=== PATIENT | female | born 1990 | race Caucasian/White ===

== ENCOUNTER → 2016-06-13 | Outpatient (CLI) | payer BC, OTHER ==
[~2016-06-13] MED LIST: LAMO100T16 PO; LAMO1TAB PO; LEVE1TAB57 PO; LEVE500T13 PO; MTR600X PO; PRENTAB26 PO
--- NOTE | 2016-06-13 12:54 | DIAGNOSTIC IMAGING REPORT ---
ADDENDUM Addendum: Inferior displacement of the right humeral head raises the possibility of subluxation or dislocation although there is no evidence for anterior or posterior dislocation on this exam. Electronically signed by: Sylvester Roque M.D. 06/13/2016 1:01 PM ORIGINAL REPORT RIGHT SHOULDER MIN 2 VIEWS CLINICAL HISTORY: Right shoulder pain. COMPARISON: Right shoulder radiograph September 19, 2014. FINDINGS: There are 2 screws within the glenoid. The hardware is intact. There is no acute fracture. There is slight elevation of the distal right clavicle. This is unchanged since prior exam. There is apparent inferior displacement of the right humeral head. This may be positional. There is no evidence for an anterior or posterior shoulder dislocation on the scapular Y or axillary views. IMPRESSION: 1. No acute fracture. 2. Stable postsurgical findings involving the glenoid. 3. Apparent inferior displacement of the right humeral head and this may be positional. No evidence for anterior or posterior shoulder dislocation. 4. Slight elevation of the distal right clavicle with respect to the acromion which is unchanged. Electronically signed by: Sylvester Roque M.D. 06/13/2016 12:52 PM
== END | disposition home or self-care (01) ==
LOC: C.RDSM 13:40
PROVIDERS: ATTEND Physical Medicine & Rehabilitation Sports Medicine
DX: R52 Pain, unspecified (principal)

== ENCOUNTER → 2016-09-05 | Outpatient (CLI) | payer OTHER ==
--- NOTE | 2016-09-05 11:53 | DIAGNOSTIC IMAGING REPORT ---
RIGHT SHOULDER MIN 2 VIEWS CLINICAL HISTORY: Right shoulder pain. There are pathology. COMPARISON: 06/13/2016 DISCUSSION: No acute fractures are visualized. Postsurgical changes are visualized with 2 glenoid screws. There is mild inferior displacement humeral head, raising the possibility of capsular laxity. IMPRESSION: 1. No acute fractures 2. Postsurgical changes involving the glenoid 3. Persistent inferior displacement right humeral head. This could relate to capsular laxity/instability. Electronically signed by: Sree Gaston M.D. 09/05/2016 11:52 AM Dictated Date/Time: 09/05/2016 11:50 AM
== END | disposition home or self-care (01) ==
LOC: C.RDSM 11:35
PROVIDERS: ATTEND Physician Assistant
DX: M25.511 Pain in right shoulder (principal)

== ENCOUNTER → 2016-10-28 | Outpatient (CLI) | payer OTHER ==
[2016-10-28 19:45] LABS: PREG INTERNAL NEGATIVE QC NEG CLEAR BACKGROUND; PREG INTERNAL POSITIVE QC POS CONTROL LINE
== END | disposition home or self-care (01) ==
LOC: C.LAB 18:57
PROVIDERS: ATTEND Family Medicine
DX: Z00.00 Encounter for general adult medical examination without abnormal findings (principal); O99.350 Diseases of the nervous system complicating pregnancy, unspecified trimester; G40.109 Localization-related (focal) (partial) symptomatic epilepsy and epileptic syndromes with simple partial seizures, not intractable, without status epilepticus; Z3A.00 Weeks of gestation of pregnancy not specified

== ENCOUNTER → 2016-11-07 | Outpatient (CLI) | payer OTHER | END | disposition home or self-care (01) | LOC: C.LAB 11:33 | PROVIDERS: ATTEND Obstetrics & Gynecology | DX: Z34.81 Encounter for supervision of other normal pregnancy, first trimester (principal) ==

== ENCOUNTER → 2016-11-11 | Outpatient (CLI) | payer OTHER | END | disposition home or self-care (01) | LOC: C.LAB 10:34 | PROVIDERS: ATTEND Obstetrics & Gynecology | DX: Z34.81 Encounter for supervision of other normal pregnancy, first trimester (principal) ==

== ENCOUNTER → 2016-11-28 | Outpatient (CLI) | payer OTHER | END | disposition home or self-care (01) | LOC: C.LAB 17:08 | PROVIDERS: ATTEND Psychiatry & Neurology Neurology | DX: O99.350 Diseases of the nervous system complicating pregnancy, unspecified trimester (principal); G40.109 Localization-related (focal) (partial) symptomatic epilepsy and epileptic syndromes with simple partial seizures, not intractable, without status epilepticus ==

== ENCOUNTER → 2016-12-25 | Outpatient (CLI) | payer OTHER ==
[2016-12-25 14:09] LABS: URINE APPEARANCE CLEAR (CLEAR); URINE BILIRUBIN NEG (NEG); URINE COLOR YELLOW; URINE NITRITE NEG (NEG); URINE PH 6.5 (4.5-7.5); URINE SPECIFIC GRAVITY 1.025 (1.000-1.030); UROBILINOGEN NEG (NEG)
[2016-12-25 14:24] LABS: MANUAL MICROSCOPIC REQUIRED? NO; REVIEW REQ? NO
[2016-12-28 02:01] LABS: CHLAMYDIA TRACH RNA*** NOT DETECTED (NOT DETECTED); GC (NEIS GONORRHOEAE)RNA** NOT DETECTED (NOT DETECTED)
== END | disposition home or self-care (01) ==
LOC: C.LABSPEC 13:17
PROVIDERS: ATTEND Obstetrics & Gynecology
DX: O34.219 Maternal care for unspecified type scar from previous cesarean delivery (principal); Z3A.00 Weeks of gestation of pregnancy not specified

== ENCOUNTER → 2016-12-25 | Outpatient (CLI) | payer OTHER ==
[2016-12-25 18:53] LABS: BASO % 0.3 %; BASO ABS # 0.03 K/uL (0-0.2); COMPLETE YES; EOS % 1.2 %; IG% 0.2 %; LYMPH % 34.5 %; LYMPH ABS # 3.24 K/uL (1.2-3.4); MEAN CELL VOLUME 88.2 fL (80-100); MEAN CORPUSCULAR HEMOGLOBIN 30.9 pg (25-34); MEAN PLATELET VOLUME 10.1 fL (7.4-10.4); MONO % 4.6 %; NEUT % 59.2 %; PLATELET COUNT 282 K/uL (130-400); RED BLOOD COUNT 4.31 M/uL (4.2-5.4); WHITE BLOOD COUNT 9.39 K/uL (4.8-10.8)
== END | disposition home or self-care (01) ==
LOC: C.LAB 18:32
PROVIDERS: ATTEND Psychiatry & Neurology Neurology
DX: G40.109 Localization-related (focal) (partial) symptomatic epilepsy and epileptic syndromes with simple partial seizures, not intractable, without status epilepticus (principal); O99.350 Diseases of the nervous system complicating pregnancy, unspecified trimester; O34.219 Maternal care for unspecified type scar from previous cesarean delivery; Z3A.00 Weeks of gestation of pregnancy not specified

== ENCOUNTER → 2016-12-25 | Outpatient (CLI) | payer OTHER | END | disposition home or self-care (01) | LOC: C.PAPS 13:35 | PROVIDERS: ATTEND Obstetrics & Gynecology | DX: Z12.4 Encounter for screening for malignant neoplasm of cervix (principal); G40.109 Localization-related (focal) (partial) symptomatic epilepsy and epileptic syndromes with simple partial seizures, not intractable, without status epilepticus; O99.350 Diseases of the nervous system complicating pregnancy, unspecified trimester; O34.219 Maternal care for unspecified type scar from previous cesarean delivery; Z3A.00 Weeks of gestation of pregnancy not specified ==

== ENCOUNTER → 2017-01-21 | Outpatient (CLI) | payer OTHER | END | disposition home or self-care (01) | LOC: C.LAB 18:47 | PROVIDERS: ATTEND Psychiatry & Neurology Neurology | DX: G40.109 Localization-related (focal) (partial) symptomatic epilepsy and epileptic syndromes with simple partial seizures, not intractable, without status epilepticus (principal); O99.350 Diseases of the nervous system complicating pregnancy, unspecified trimester; Z3A.00 Weeks of gestation of pregnancy not specified ==

== ENCOUNTER → 2017-01-22 | Outpatient (CLI) | payer OTHER ==
[2017-01-22 10:45] LABS: GTGD 50 Grams
== END | disposition home or self-care (01) ==
LOC: C.LAB1850 09:27
PROVIDERS: ATTEND Obstetrics & Gynecology
DX: O09.92 Supervision of high risk pregnancy, unspecified, second trimester (principal)

== ENCOUNTER 2017-02-11 12:24 | Emergency (ER) | payer OTHER ==
[~2017-02-11] VITALS: Ht 165.1 cm; Wt 73.2 kg
[~2017-02-11 12:24] MED LIST changes: -LAMO1TAB PO; -LEVE500T13 PO
[2017-02-11 12:25] VITALS: TEMP 36.8; Ht 165.1 cm; Wt 73.2 kg
[2017-02-11] MEDS ORDERED: SODIUM CHLORIDE 0.9% 1000ML 1,000 ML IV STA ×2 (12:44→14:59)
[2017-02-11 13:44] LABS: BASO % 0.2 %; BASO ABS # 0.01 K/uL (0-0.2); COMPLETE YES; EOS % 0.4 %; HEMATOCRIT 38.3 % (37-47); IG% 0.4 %; LYMPH % 26.1 %; LYMPH ABS # 1.46 K/uL (1.2-3.4); MEAN CELL VOLUME 87.4 fL (80-100); MEAN CORPUSCULAR HEMOGLOBIN 29.7 pg (25-34); MEAN CORPUSCULAR HGB CONC 33.9 g/dl (32-36); MEAN PLATELET VOLUME 9.5 fL (7.4-10.4); MONO % 5.9 %; PLATELET COUNT 249 K/uL (130-400); RED BLOOD COUNT 4.38 M/uL (4.2-5.4)
[2017-02-11] MEDS ORDERED: PRENTAB26 PO (13:45)
[2017-02-11] MEDS ORDERED: LEVE500T13 PO (13:45)
[2017-02-11] MEDS ORDERED: LAMO1TAB PO (13:45)
[2017-02-11 13:52] LABS: INR 0.9 (0.9-1.1); PARTIAL THROMBOPLASTIN RATIO 1.1; PROTHROMBIN TIME (PATIENT) 10.1 SECONDS (9.0-12.0)
[2017-02-11 14:02] LABS: ALT/SGPT 18 U/L (12-78); AMYLASE 35 U/L (25-115); BLOOD UREA NITROGEN 5 mg/dl (7-18); BUN/CREATININE RATIO 8.2 (10-20); CALCIUM 8.6 mg/dl (8.5-10.1); CARBON DIOXIDE 21 mmol/L (21-32); CHLORIDE 107 mmol/L (98-107); CREATININE 0.66 mg/dl (0.60-1.20); GLUCOSE 71 mg/dl (70-99); POTASSIUM 3.2 mmol/L (3.5-5.1); SODIUM 139 mmol/L (136-145)
[2017-02-11 14:07] LABS: ALKALINE PHOSPHATASE 55 U/L (45-117); AST/SGOT 21 U/L (15-37)
--- NOTE | 2017-02-11 15:23 | EMERGENCY ROOM VISIT NOTE ---
History Report prepared by Mary: Nakul Oneill Under the Supervision of: Dr. Ronnie Cage D.O. First contact with patient: 12:28 Stated Complaint: SYNCOPE History of Present Illness The patient is a 26 year old female who presents to the Emergency Room for evaluation of a syncopal episode occurring shortly prior to arrival. The patient is currently with her second . She states that she passed out while alone in the bathroom at her PCP's office. She was seen by her PCP for flu-like symptoms including nausea, vomiting, diarrhea, headaches, and abdominal pain. The patient states that this was her second visit to her PCP for her symptoms, as they persisted for four days. She has a history of epilepsy for which she is on Lamictal. She believes she lost bladder incontinence during the episode, but denies biting her tongue. Per family, the patient was in the bathroom for around 30 minutes before she was found. She states that the patient appeared slightly purple when she was found. She states that the patient was initially unresponsive, but slowly became more alert. The patient has not had a seizure for about a year, but states that she was having seizures regularly with her previous . She denies any black or bloody stool. She notes that she had a fever four days ago. Source of History: patient Onset: Shortly prior to arrival Quality: other (syncope) Timing: other (episode) Associated Symptoms: + LOC, + nausea, + vomiting, + abdominal pain, + diarrhea, No melena, No hematochezia Note: Additional symptom: Loss of bladder continence. Review of Systems See HPI for pertinent positives & negatives. A total of 10 systems reviewed and were otherwise negative. Past Medical & Surgical Medical Problems: (1) 37 weeks gestation of (2) 39 weeks gestation of (3) Breech presentation (4) C. difficile diarrhea (5) Dehydration, moderate (6) Epilepsy (7) Epilepsy affecting in third trimester (8) Maternal seizure disorder during in third trimester (9) Nausea and vomiting during (10) Seizure (11) Seizure disorder during in third trimester Surgical Problems: (1) Hx of cholecystectomy (2) S/P myringotomy with insertion of tube (3) Status post shoulder surgery Family History Cancer Diabetes mellitus Heart disease Hypertension Social History Smoking Status: Never Smoker Alcohol Use: occasionally Drug Use: none Marital Status: Housing Status: lives with significant other Occupation Status: employed Current/Historical Medications Scheduled Lamotrigine (Lamictal Xr), 300 MG PO BID Levetiracetam (Keppra), 500 MG PO BID Multivit/Min/Iron/Fol Ac/Pren ( Vitamin), 1 TAB PO DAILY Allergies Coded Allergies: Penicillins (Verified Allergy, Intermediate, HIVES, 04/03/16) PT HAD HIVES WITH AMOXICILLIN AND WAS TOLD TO STAY AWAY FROM [facility] Amoxicillin (Verified Allergy, Mild, hives, 04/03/16) Tramadol (Verified Allergy, Unknown, SHORTNESS OF BREATH, 04/03/16) Ondansetron (Verified Adverse Reaction, Unknown, Constipation, 04/03/16) Good anti-emetic control but does develop constipation with higher dosing Prochlorperazine (Verified Adverse Reaction, Unknown, DYSTONIC RX, ) Promethazine (Verified Adverse Reaction, Unknown, dystonic reaction , ) Physical Exam Vital Signs Date Time Temp Pulse Resp B/P (MAP) Pulse Ox O2 Delivery O2 Flow Rate FiO2 02/11/17 15:32 74 14 103/58 97 Room Air 02/11/17 14:48 78 19 109/58 99 Room Air 02/11/17 14:48 78 19 109/58 99 Room Air 88 112/55 105 112/60 02/11/17 12:55 77 12 113/66 95 Room Air 02/11/17 12:39 87 02/11/17 12:25 36.8 75 20 109/66 96 Room Air Physical Exam GENERAL: Patient is awake, alert, and in no acute distress. Patient is resting comfortably and showing no signs of anxiety EYES: The conjunctivae are clear. The pupils are round and reactive. EARS, NOSE, MOUTH AND THROAT: The nose is without any evidence of any deformity. Mucous membranes are moist tongue is midline NECK: The neck is nontender and supple. RESPIRATORY: Normal respiratory effort is noted there is no evidence of wheezing rhonchi or rales CARDIOVASCULAR: Regular rate and rhythm noted there no murmurs rubs or gallops normal S1 normal S2 GASTROINTESTINAL: The abdomen is soft. Bowel sounds are present in all quadrants. Abdomen is nontender MUSCULOSKELETAL/EXTREMITIES: There is no evidence of gross deformity full range of motion is noted in the hips and shoulders SKIN: There is no obvious evidence of any rash. There are no petechiae, pallor or cyanosis noted. NEUROLOGIC: Patient is awake alert and oriented x3 strength is symmetric patellar reflexes are 2+ bilaterally Medical Decision & Procedures Laboratory Results 02/11/17 13:25 Red Blood Count 4.38, Mean Corpuscular Volume 87.4, Mean Corpuscular Hemoglobin 29.7, Mean Corpuscular Hemoglobin Concent 33.9, Mean Platelet Volume 9.5, Neutrophils (%) (Auto) 67.0, Lymphocytes (%) (Auto) 26.1, Monocytes (%) (Auto) 5.9, Eosinophils (%) (Auto) 0.4, Basophils (%) (Auto) 0.2, Neutrophils # (Auto) 3.76, Lymphocytes # (Auto) 1.46, Monocytes # (Auto) 0.33, Eosinophils # (Auto) 0.02, Basophils # (Auto) 0.01 02/11/17 13:25 Test 02/11/17 13:25 02/11/17 14:50 White Blood Count 5.60 K/uL (4.8-10.8) Red Blood Count 4.38 M/uL (4.2-5.4) Hemoglobin 13.0 g/dL (12.0-16.0) Hematocrit 38.3 % (37-47) Mean Corpuscular Volume 87.4 fL (80-100) Mean Corpuscular Hemoglobin 29.7 pg (25-34) Mean Corpuscular Hemoglobin Concent 33.9 g/dl (32-36) Platelet Count 249 K/uL (130-400) Mean Platelet Volume 9.5 fL (7.4-10.4) Neutrophils (%) (Auto) 67.0 % Lymphocytes (%) (Auto) 26.1 % Monocytes (%) (Auto) 5.9 % Eosinophils (%) (Auto) 0.4 % Basophils (%) (Auto) 0.2 % Neutrophils # (Auto) 3.76 K/uL (1.4-6.5) Lymphocytes # (Auto) 1.46 K/uL (1.2-3.4) Monocytes # (Auto) 0.33 K/uL (0.11-0.59) Eosinophils # (Auto) 0.02 K/uL (0-0.5) Basophils # (Auto) 0.01 K/uL (0-0.2) RDW Standard Deviation 43.3 fL (36.4-46.3) RDW Coefficient of Variation 13.4 % (11.5-14.5) Immature Granulocyte % (Auto) 0.4 % Immature Granulocyte # (Auto) 0.02 K/uL (0.00-0.02) Prothrombin Time 10.1 SECONDS (9.0-12.0) Prothromb Time International Ratio 0.9 (0.9-1.1) Activated Partial Thromboplast Time 27.3 SECONDS (21.0-31.0) Partial Thromboplastin Ratio 1.1 Anion Gap 11.0 mmol/L (3-11) Est Creatinine Clear Calc Drug Dose 130.6 ml/min Estimated GFR () 142.3 Estimated GFR (Non- 122.8 BUN/Creatinine Ratio 8.2 (10-20) Calcium Level 8.6 mg/dl (8.5-10.1) Total Bilirubin 0.3 mg/dl (0.2-1) Direct Bilirubin < 0.1 mg/dl (0-0.2) Aspartate Amino Transf (AST/SGOT) 21 U/L (15-37) Alanine Aminotransferase (ALT/SGPT) 18 U/L (12-78) Alkaline Phosphatase 55 U/L (45-117) Troponin I < 0.015 ng/ml (0-0.045) Total Protein 6.8 gm/dl (6.4-8.2) Albumin 3.1 gm/dl (3.4-5.0) Amylase Level 35 U/L (25-115) Lipase 126 U/L (73-393) Urine Color DK YELLOW Urine Appearance CLEAR (CLEAR) Urine pH 5.5 (4.5-7.5) Urine Specific [place] 1.029 (1.000-1.030) Urine Protein TRACE (NEG) Urine Glucose (UA) NEG (NEG) Urine Ketones 4+ (NEG) Urine Occult Blood NEG (NEG) Urine Nitrite NEG (NEG) Urine Bilirubin NEG (NEG) Urine Urobilinogen NEG (NEG) Urine Leukocyte Esterase SMALL (NEG) Laboratory results per my review. Medications Administered Medications (Trade) Dose Ordered Sig/Angela Route Start Time Stop Time Status Last Admin Dose Admin Sodium Chloride 1,000 ml @ 999 mls/hr Q1H1M STAT IV 02/11/17 12:44 9/5/17 13:48 DC 02/11/17 13:41 999 MLS/HR Sodium Chloride 1,000 ml @ 999 mls/hr Q1H1M STAT IV 02/11/17 14:59 02/11/17 15:59 02/11/17 15:33 999 MLS/HR ECG Indication: syncope Rate (beats per minute): 69 Rhythm: normal sinus Findings: no ectopy, other (No acute ST segment abnormalities) Comparison ECG Date: September 26, 2015 Change: no significant change ED Course 1234: The patient was evaluated in room C2B. A complete history and physical examination were performed. 1244: Ordered NSS 1,000 ml @ 999 mls/hr IV. 1459: Ordered NSS 1,000 ml @ 999 mls/hr IV. 1555: Upon reevaluation, the patient is resting comfortably. I discussed the results and treatment plan with her. She verbalized agreement of the treatment plan. The patient was discharged home. Medical Decision Differential diagnosis: Etiologies such as infection, hypoglycemia, electrolyte abnormalities, cardiac sources, intracerebral event, trauma, toxicologic, neurologic, as well as others were entertained. Nursing notes reviewed. Additional history is obtained from the patient's significant other. The patient is a 26-year-old female who presented to emergency department after having a seizure and her primary care physician's office. Currently the patient is 18 weeks and has an underlying seizure disorder. She's been suffering with nausea vomiting and diarrhea for the last few days. She states that she has seen her seizure medications passing in her diarrhea and does not feel that she is absorbing them. Levels were sent for her antiseizure medications but these may take some time to return. I discussed the patient's laboratory results with her. At this time she did not wish to have any radiographic studies. She was found have a small area on her right cheek the longer she was here that could be consistent with a small bruise to the face. She still did not wish to have any radiographic studies and at this time I agree with that approach given the patient's neurologic status in the emergency department. I discussed her case with the covering neurologist. Given the patient's current condition she may require medication change but he felt that this could be done in the office at follow-up and I agree. I discussed follow- up with the patient. She was encouraged to drink plenty clear liquids and continue all medications as prescribed otherwise she was encouraged to return to emergency department immediately if symptoms change worsen or the need arises. Head Trauma GCS Score: 15 Consults Time Called: 1434 Consulting Physician: Dr. Thompson -Neurology Returned Call: [phone] I discussed the patient's case with Dr. Thompson. He will see the patient in the office next week. Impression Primary Impression: Seizure Additional Impressions: Dehydration Diarrhea Scribe Attestation The scribe's documentation has been prepared under my direction and personally reviewed by me in its entirety. I confirm that the note above accurately reflects all work, treatment, procedures, and medical decision making performed by me. Departure Information Dispostion Home / Self-Care Referrals No Doctor, Assigned (PCP) Forms HOME CARE DOCUMENTATION FORM, IMPORTANT VISIT INFORMATION Patient Instructions ED Dehydration, ED Seizure Recurrent, My [facility] Additional Instructions Drink plenty clear liquids. Continue all medications as prescribed. Rest and avoid any strenuous activity. Return to the emergency department immediately if symptoms change worsen or the need arises. Follow-up with your urologist this week. Problem Qualifiers
[2017-02-11 15:33] LABS: URINE APPEARANCE CLEAR (CLEAR); URINE BILIRUBIN NEG (NEG); URINE COLOR DK YELLOW; URINE EPITHELIAL CELL AUTO >30 /lpf (0-5); URINE NITRITE NEG (NEG); URINE PH 5.5 (4.5-7.5); URINE SPECIFIC GRAVITY 1.029 (1.000-1.030); UROBILINOGEN NEG (NEG)
[2017-02-11 15:44] LABS: MANUAL MICROSCOPIC REQUIRED? NO; REVIEW REQ? YES
[2017-02-11 16:34] VITALS: BP 107/57; PULSE 78; O2SAT 99
== END 2017-02-11 16:35 | disposition home or self-care (01) ==
LOC: EDBD 12:24 → C.EDC 12:25
DX: O99.352 Diseases of the nervous system complicating pregnancy, second trimester (principal); G40.909 Epilepsy, unspecified, not intractable, without status epilepticus; O99.89 Other specified diseases and conditions complicating pregnancy, childbirth and the puerperium; R19.7 Diarrhea, unspecified; E86.0 Dehydration; Z3A.18 18 weeks gestation of pregnancy; Z90.49 Acquired absence of other specified parts of digestive tract; Z80.9 Family history of malignant neoplasm, unspecified; Z83.3 Family history of diabetes mellitus; Z82.49 Family history of ischemic heart disease and other diseases of the circulatory system; Z79.899 Other long term (current) drug therapy

== ENCOUNTER → 2017-04-23 | Outpatient (CLI) | payer OTHER ==
[~2017-04-23] MED LIST changes: -LAMO100T16 PO; +LAMO1TAB PO; -LEVE1TAB57 PO; +LEVE500T13 PO; -MTR600X PO
[2017-04-23 12:12] LABS: URINE APPEARANCE CLEAR (CLEAR); URINE BILIRUBIN NEG (NEG); URINE COLOR YELLOW; URINE EPITHELIAL CELL AUTO >30 /lpf (0-5); URINE NITRITE NEG (NEG); URINE SPECIFIC GRAVITY 1.025 (1.000-1.030); UROBILINOGEN NEG (NEG)
[2017-04-23 12:38] LABS: MANUAL MICROSCOPIC REQUIRED? NO; REVIEW REQ? NO
== END | disposition home or self-care (01) ==
LOC: C.LABSPEC 11:16
PROVIDERS: ATTEND Obstetrics & Gynecology
DX: O09.93 Supervision of high risk pregnancy, unspecified, third trimester (principal)

== ENCOUNTER 2017-05-22 18:58 | Emergency (ER) | payer OTHER ==
[~2017-05-22] VITALS: Ht 165.1 cm; Wt 81.3 kg
[2017-05-22 19:06] VITALS: TEMP 36.7; Ht 165.1 cm; Wt 81.3 kg
[2017-05-22] MEDS ORDERED: LAMO1TAB75 PO (19:18)
--- NOTE | 2017-05-22 20:16 | DIAGNOSTIC IMAGING REPORT ---
R SHOULDER MIN 2 VIEWS ROUTINE CLINICAL HISTORY: Right shoulder pain. COMPARISON STUDY: Right shoulder 09/05/2016. FINDINGS: No acute fractures within the right shoulder. There are 2 screws along the inferior glenoid which is unchanged in position. The right clavicle is intact. There is persistent inferior displacement of the right humeral head in relation to the glenoid. This remains unchanged. IMPRESSION: 1. No acute fractures within the right shoulder. 2. Postoperative changes at the glenoid, unchanged. 3. Persistent inferior displacement of the right humeral head in relation to the glenoid. An acute dislocation/subluxation could have this appearance. However, this could also represent long-standing capsular laxity/instability given the lack of significant change. Electronically signed by: Issa Kaminski M.D. 05/22/2017 8:15 PM Dictated Date/Time: 05/22/2017 8:12 PM
--- NOTE | 2017-05-22 20:20 | DIAGNOSTIC IMAGING REPORT ---
R SHOULDER 1 VIEW CLINICAL HISTORY: Right shoulder pain. COMPARISON STUDY: Right shoulder 05/22/2017. Right shoulder 09/19/2014. FINDINGS: Single Y view of the right shoulder. There is no anterior or posterior displacement identified. Of note, compared to the 2014 examination the right shoulder demonstrates increased inferior displacement. Therefore, the initial study is more concerning for inferior dislocation IMPRESSION: 1. No anterior or posterior displacement. 2. Inferior displacement of the humeral head in relation to the glenoid on the initial study is concerning for inferior dislocation rather than chronic laxity. Electronically signed by: Issa Kaminski M.D. 05/22/2017 8:19 PM Dictated Date/Time: 05/22/2017 8:17 PM
--- NOTE | 2017-05-22 21:12 | EMERGENCY ROOM VISIT NOTE ---
ED Visit Note First contact with patient: 19:12 The patient was seen and examined with Wood Lozano PA-C. I agree with the history, physical and findings. Please see the note for disposition and details. The patient was examined and I can move her through good range of motion with the shoulder. She is uncomfortable. It feels as though the humeral head can be elevated with an upward force applied to the elbow and anatomic alignment is achieved. If the patient holds her arm with upward force the joint lines normally. As she relaxes and let go of her lower arm the humeral head appears to slip inferiorly. She seems to more or less sublux rather than completely dislocate. It elevates quite easily. A sling was applied. The patient declined analgesia. Consultation was made with orthopedics will see her tomorrow. She is neurovascularly intact.
[2017-05-22 21:33] VITALS: BP 127/72; PULSE 88; O2SAT 99
--- NOTE | 2017-05-22 21:39 | EMERGENCY ROOM VISIT NOTE ---
ED Visit Note First contact with patient: 19:12 Chief Complaint: Right shoulder pain. History of Present Illness: Ms. Kellogg is a 26-year-old white female who ambulates into the ED complaining of right shoulder pain. 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 In June 2014 Dr. Vogt, [facility], performed a [place]-Latarjet open reconstruction procedure. After surgery she does report she developed a nerve injury in the right shoulder. Patient reports approximately 2.5 hours ago she was at home and tripped walking down the stairs when her cat ran in front of her. She reports she grabbed the wall so she would not fall. When she grabbed the wall she sustained what she describes as a hyper pars idle extension injury. When this occurred she reports she felt a popping sensation in the right shoulder and since that time she has been having severe right shoulder pain. She places her discomfort globally throughout the shoulder with slight prominence over the anterior portion of the shoulder. She describes her pain as a combination of cramping and burning. She rates her discomfort 8/10. Her pain is nonradiating. Her pain worsens with palpation of the humerus and any attempts to her glenohumeral joint. She has not identified any alleviating factors related to the pain. She has not taken any medication for pain prior to arrival at the hospital. Associated with her pain she reports she is having paresthesias over the dorsal aspect of the thumb. She reports during the fall she did not strike her abdomen; she is currently 32 weeks and she is felt the baby moving. Additionally she reports she is not having any neck pain, chest pain, shortness of breath, nausea, vomiting, right upper extremity weakness. Review of Systems: As noted above in history of present illness. At least body systems were reviewed and found to be negative as noted above. Past Medical History: As previously noted, seizure disorder, status post cholecystectomy. Current Medications: Lamictal, Keppra, vitamins and Lamotrigine Allergies to Medications: Penicillin, promethazine, prochlorperazine, ondansetron, tramadol. Social History: He is currently employed; she lives with her family and feels safe in her home environment; she denies tobacco and alcohol use. Physical Examination: Vital Signs: Date Time Temp Pulse Resp B/P (MAP) Pulse Ox O2 Delivery O2 Flow Rate FiO2 05/22/17 19:06 36.7 92 18 138/87 97 Room Air GENERAL: 26-year-old female in mild to moderate distress due to pain, nontoxic- appearing, afebrile and hemodynamically stable. NEUROLOGICAL: Awake, alert and oriented to person, place and time. Answering questions appropriately and following commands. SKIN: Warm, dry and pink. No soft tissue trauma noted. RIGHT UPPER EXTREMITY: I do not appreciate any gross bony deformity but patient from her surgery and nerve injury does have a seeking appearance anteriorly. She had moderate tenderness over the anterior humeral head without bony deformity or crepitus. Decreased range of motion in all movements due to pain. Pain with passive and active movements of the shoulder. No paresthesias over the axillary nerve distribution. Paresthesias noted over the dorsal thumb; patient does reports she's had these intermittently since her surgeries. No tenderness throughout the distal humerus, elbow, forearm or wrist. Throughout the hand the skin was warm and pink and capillary refill is brisk. With the shoulder stabilize she has 4/5 muscle strength in flexion and extension of the elbow, pronation and supination of forearm, flexion, extension and radial and ulnar deviation of the wrist. ED Course: Patient is assessed as noted above. Patient's medication list was reviewed. Patient was offered medication multiple times and refused. Right Shoulder X-Rays: Were read by myself and the radiologist showing no acute fractures of the right shoulder. Postoperative changes at the glenoid is unchanged. Persistent inferior displacement of the right humeral head in relationship to the glenoid was again seen and was questioned if this was a dislocation/subluxation or long-standing capsular he laxity/instability. Right Shoulder Y-View X-Rays: Were read by myself and the radiologist showing no anterior posterior displacement. Inferior displacement of the humeral head relationship to the glenoid is concerning for possible inferior dislocation. Patient's case was reviewed with ; he and apparently assessed the patient and we agreed on diagnostic approach, treatment, disposition and plan per Patient's case was consulted with Dr. Tran, [facility]; he reviewed the patient's x-rays from home and suggested that the patient be placed in a sling with a abductor pillow and office follow-up. Patient was placed in a sling with an abductor pillow. Patient was educated about today's findings and instructed on her treatment plan ; she verbalized understanding and agreement with this plan. Clinical Impression: Acute right shoulder pain. Disposition: Patient discharged home in stable condition accompanied by her ; prior to departure she was reassessed and subjectively reported she was feeling better. Plan: Comfort measures were discussed with the patient including rest, acetaminophen, and sling use. Patient was encouraged to contact [facility] tomorrow for follow-up care and treatment. Patient is encouraged return ED for worsening/uncontrolled pain, worsening thumb paresthesias or any new/concerning symptoms.
== END 2017-05-22 21:35 | disposition home or self-care (01) ==
LOC: C.EDB 18:59 → C.EDD 21:35
DX: O26.893 Other specified pregnancy related conditions, third trimester (principal); M25.511 Pain in right shoulder; W19.XXXA Unspecified fall, initial encounter; Y93.01 Activity, walking, marching and hiking; Y99.8 Other external cause status; Z3A.32 32 weeks gestation of pregnancy; O99.353 Diseases of the nervous system complicating pregnancy, third trimester; G40.909 Epilepsy, unspecified, not intractable, without status epilepticus; Z90.49 Acquired absence of other specified parts of digestive tract; Z79.899 Other long term (current) drug therapy

== ENCOUNTER 2017-06-04 11:05 | Emergency (ER) | payer OTHER ==
[~2017-06-04 11:05] MED LIST changes: +LAMO1TAB75 PO
[2017-06-04 11:15] VITALS: O2SAT 100
[2017-06-04 11:19] VITALS: TEMP 37
[2017-06-04 11:25] LABS: BASO % 0.2 %; BASO ABS # 0.02 K/uL (0-0.2); COMPLETE YES; EOS % 0.5 %; HEMATOCRIT 34.9 % (37-47); IG% 0.4 %; LYMPH % 16.9 %; LYMPH ABS # 1.86 K/uL (1.2-3.4); MEAN CELL VOLUME 82.3 fL (80-100); MEAN CORPUSCULAR HEMOGLOBIN 27.6 pg (25-34); MEAN CORPUSCULAR HGB CONC 33.5 g/dl (32-36); MEAN PLATELET VOLUME 9.4 fL (7.4-10.4); MONO % 5.5 %; NEUT % 76.5 %; PLATELET COUNT 303 K/uL (130-400); RED BLOOD COUNT 4.24 M/uL (4.2-5.4); WHITE BLOOD COUNT 11.01 K/uL (4.8-10.8)
--- NOTE | 2017-06-04 11:25 | EMERGENCY ROOM VISIT NOTE ---
History Report prepared by Mary: Ida Christianson Under the Supervision of: Dr. Abdias Allen M.D. First contact with patient: 11:06 Stated Complaint: SEIZURE History of Present Illness The patient is a 26 year old female who presents to the Emergency Room with complaints of a seizure occurring just prior to arrival. Per EMS, the patient has a known seizure disorder. Per EMS, the patient fell down about 10 stairs and landed on her stomach. The patient is 8 months . This is the patient's second and she had no complications with her first . She reports neck pain, left leg pain, abdominal pressure. Presently , she denies having any contractions. The patient states she felt fine before her seizure. Per , the fall was unwitnessed. The patient's last seizure was in March was considered metabolic. The patient takes Keppra and Lamictal and she has been taking it as prescribed. Source of History: patient Onset: just prior to arrival Position: other (generalized) Quality: other (sezuire) Timing: other (episode) Associated Symptoms: + neck pain, + abdominal pain Review of Systems All systems have been listed, reviewed, and are negative other than those previously mentioned. Please see Additional Medical History Sheet. Past Medical & Surgical Medical Problems: (1) 37 weeks gestation of (2) 39 weeks gestation of (3) Breech presentation (4) C. difficile diarrhea (5) Dehydration, moderate (6) Epilepsy (7) Epilepsy affecting in third trimester (8) Maternal seizure disorder during in third trimester (9) Nausea and vomiting during (10) (11) Seizure (12) Seizure disorder during in third trimester Surgical Problems: (1) Hx of cholecystectomy (2) S/P myringotomy with insertion of tube (3) Status post shoulder surgery Family History Cancer Diabetes mellitus Heart disease Hypertension Social History Smoking Status: Never Smoker Alcohol Use: occasionally Drug Use: none Marital Status: Housing Status: lives with significant other Occupation Status: employed Current/Historical Medications Scheduled Lamotrigine (Lamictal Xr), 300 MG PO BID Lamotrigine (Lamotrigine Er), 50 MG PO BID Levetiracetam (Keppra), 500 MG PO BID Multivit/Min/Iron/Fol Ac/Pren ( Vitamin), 1 TAB PO DAILY Allergies Coded Allergies: Penicillins (Verified Allergy, Intermediate, HIVES, 06/04/17) PT HAD HIVES WITH AMOXICILLIN AND WAS TOLD TO STAY AWAY FROM N Amoxicillin (Verified Allergy, Mild, hives, 06/04/17) Tramadol (Verified Allergy, Unknown, SHORTNESS OF BREATH, 06/04/17) Ondansetron (Verified Adverse Reaction, Unknown, Constipation, 06/04/17) Good anti-emetic control but does develop constipation with higher dosing Prochlorperazine (Verified Adverse Reaction, Unknown, DYSTONIC RX, ) Promethazine (Verified Adverse Reaction, Unknown, dystonic reaction , ) Physical Exam Vital Signs Date Time Temp Pulse Resp B/P (MAP) Pulse Ox O2 Delivery O2 Flow Rate FiO2 06/04/17 12:22 97 18 119/66 97 Room Air 06/04/17 12:04 96 06/04/17 11:56 95 24 118/75 98 Room Air 06/04/17 11:19 37.0 105 26 118/74 100 Room Air 06/04/17 11:15 100 Room Air Physical Exam GENERAL: Initially the patient seemed confused and postictal. Patient awake, alert, oriented x 3. Patient does not appear toxic. Patient is adequately hydrated and well-nourished. SKIN: No erythema, pallor, cyanosis or rash HEENT: Normal head, pupils equal, reactive to light and accommodation. Oral cavity and posterior pharynx appear normal. Neck: in -C-collar. LUNGS: Clear to auscultation. No wheezes, no rales, no rhonchi. HEART: No murmurs. No gallops. No rubs ABDOMEN: Distended consistent with . Large bruise to RUQ. Pelvis nontender. EXTREMITIES: No signs of trauma. No pedal or pretibial edema. No calf or thigh tenderness. NEUROLOGIC: Cranial nerves II-XII within normal limits. No gross motor sensory function deficits. Medical Decision & Procedures ER Provider Diagnostic Interpretation: CT results are interpretations by the radiologist and per my review. ABD/PELVIS NO IV OR ORAL CONT FINDINGS: Post Office Markup Clerk topogram: Fetus noted. Lung bases: Minimal basilar opacities, likely atelectasis. Normal heart size. No pericardial or pleural effusion. Liver: Normal morphology. Normal density. Biliary: No gross biliary ductal dilatation allowing for noncontrast technique. Gallbladder surgically absent. Pancreas: Normal noncontrast appearance. Spleen: Normal noncontrast appearance. Adrenal glands: Normal noncontrast appearance. Kidneys and ureters: Normal noncontrast appearance of the renal parenchyma. Bilateral mild pelvocaliectasis with bilateral hydroureter. This likely represents hydronephrosis of . No nephrolithiasis. No perinephric fat stranding. Bladder: Incompletely evaluated secondary to underdistention. Pelvic organs: Normal third trimester gravid uterus and fetus. Allowing for noncontrast technique, the fetus is grossly normal appearing. Normal amniotic fluid volume. Posterior fundal placenta. Bowel: Normal appendix. No bowel obstruction. No gross evidence of bowel wall thickening or perienteric fat stranding. No infiltration of the mesentery. Peritoneal cavity: No free fluid or intraperitoneal gas. Lymph nodes: No gross lymphadenopathy allowing for noncontrast technique. Vasculature: Normal noncontrast appearance. Abdominal wall: Minimal infiltration of the subcutaneous tissue of the infraumbilical abdominal wall. Mild infiltration of the subcutaneous tissue of the right anterolateral abdominal wall in the right upper quadrant. A section scar may also be present. Minimal infiltration of the subcutaneous tissue in the right anterolateral thigh. Musculoskeletal: Normal. IMPRESSION: 1. Minimal superficial subcutaneous contusions in the right anterolateral abdominal wall, infraumbilical anterior abdominal wall, and right anterolateral thigh. No acute osseous injury. 2. Noncontrast technique limits evaluation for solid or hollow organ injury. Allowing for this, no free fluid or other evidence of intra-abdominal injury. 3. Normal noncontrast appearance of the gravid uterus and fetus. Electronically signed by: Aquiles Forrester M.D. CERVICAL SPINE W/O FINDINGS: Post Office Markup Clerk topogram: Unremarkable. Straightening of normal cervical lordosis likely positional. Bodies maintain normal height and alignment. Intervertebral disc spaces preserved. No acute fracture or subluxation. Paraspinal soft tissues normal. Few prominent bilateral cervical lymph nodes likely reactive. Lung apices clear. IMPRESSION: No acute osseous injury of the cervical spine. Electronically signed by: Aquiles Forrester M.D. HEAD WITHOUT CONTRAST (CT) FINDINGS: Post Office Markup Clerk topogram: Unremarkable. Ventricles and sulci normal in size. Brain parenchyma normal in appearance with preserved palacios-white differentiation. No mass effect or midline shift. No hemorrhage or acute territorial infarct. No extra-axial fluid collection. Paranasal sinuses and mastoid air cells clear. Calvarium intact. IMPRESSION: 1. No acute intracranial abnormality. Electronically signed by: Aquiles Forrester M.D. Laboratory Results 06/04/17 11:10 Red Blood Count 4.24, Mean Corpuscular Volume 82.3, Mean Corpuscular Hemoglobin 27.6, Mean Corpuscular Hemoglobin Concent 33.5, Mean Platelet Volume 9.4, Neutrophils (%) (Auto) 76.5, Lymphocytes (%) (Auto) 16.9, Monocytes (%) (Auto) 5.5, Eosinophils (%) (Auto) 0.5, Basophils (%) (Auto) 0.2, Neutrophils # (Auto) 8.42, Lymphocytes # (Auto) 1.86, Monocytes # (Auto) 0.61, Eosinophils # (Auto) 0.06, Basophils # (Auto) 0.02 06/04/17 12:13 06/04/17 11:10 Test 06/04/17 11:10 06/04/17 11:55 06/04/17 12:15 White Blood Count 11.01 K/uL (4.8-10.8) Red Blood Count 4.24 M/uL (4.2-5.4) Hemoglobin 11.7 g/dL (12.0-16.0) Hematocrit 34.9 % (37-47) Mean Corpuscular Volume 82.3 fL (80-100) Mean Corpuscular Hemoglobin 27.6 pg (25-34) Mean Corpuscular Hemoglobin Concent 33.5 g/dl (32-36) Platelet Count 303 K/uL (130-400) Mean Platelet Volume 9.4 fL (7.4-10.4) Neutrophils (%) (Auto) 76.5 % Lymphocytes (%) (Auto) 16.9 % Monocytes (%) (Auto) 5.5 % Eosinophils (%) (Auto) 0.5 % Basophils (%) (Auto) 0.2 % Neutrophils # (Auto) 8.42 K/uL (1.4-6.5) Lymphocytes # (Auto) 1.86 K/uL (1.2-3.4) Monocytes # (Auto) 0.61 K/uL (0.11-0.59) Eosinophils # (Auto) 0.06 K/uL (0-0.5) Basophils # (Auto) 0.02 K/uL (0-0.2) RDW Standard Deviation 40.2 fL (36.4-46.3) RDW Coefficient of Variation 13.3 % (11.5-14.5) Immature Granulocyte % (Auto) 0.4 % Immature Granulocyte # (Auto) 0.04 K/uL (0.00-0.02) Anion Gap 7.0 mmol/L (3-11) Estimated GFR () 142.3 Estimated GFR (Non- 122.8 BUN/Creatinine Ratio 9.5 (10-20) Calcium Level 8.4 mg/dl (8.5-10.1) Total Bilirubin 0.2 mg/dl (0.2-1) Aspartate Amino Transf (AST/SGOT) 18 U/L (15-37) Alanine Aminotransferase (ALT/SGPT) 18 U/L (12-78) Alkaline Phosphatase 73 U/L (45-117) Total Protein 7.1 gm/dl (6.4-8.2) Albumin 2.9 gm/dl (3.4-5.0) Globulin 4.2 gm/dl (2.5-4.0) Albumin/Globulin Ratio 0.7 (0.9-2) Urine Color YELLOW Urine Appearance CLEAR (CLEAR) Urine pH 6.5 (4.5-7.5) Urine Specific [place] 1.019 (1.000-1.030) Urine Protein NEG (NEG) Urine Glucose (UA) NEG (NEG) Urine Ketones NEG (NEG) Urine Occult Blood TRACE (NEG) Urine Nitrite NEG (NEG) Urine Bilirubin NEG (NEG) Urine Urobilinogen NEG (NEG) Urine Leukocyte Esterase NEG (NEG) Urine WBC (Auto) 1-5 /hpf (0-5) Urine RBC (Auto) 0-4 /hpf (0-4) Urine Hyaline Casts (Auto) 1-5 /lpf (0-5) Urine Epithelial Cells (Auto) 10-20 /lpf (0-5) Urine Bacteria (Auto) NEG (NEG) Laboratory results as stated above per my review. Medications Administered Medications (Trade) Dose Ordered Sig/Angela Route Start Time Stop Time Status Last Admin Dose Admin Potassium Chloride/Sodium Chloride 1,000 ml @ 75 mls/hr [id number] IV 06/04/17 13:45 07/04/17 13:44 06/04/17 14:04 75 MLS/HR Sodium Chloride 500 ml @ 500 mls/hr Q1H IV 06/04/17 13:42 06/04/17 14:41 06/04/17 12:58 500 MLS/HR Levetiracetam 1000 mg/Dextrose 110 ml @ 440 mls/hr ONE STAT IV 06/04/17 13:41 06/04/17 13:55 DC 06/04/17 13:58 440 MLS/HR Acetaminophen (Tylenol Tab) 500 mg Q6H PRN PO 06/04/17 13:45 07/04/17 13:44 06/04/17 13:50 500 MG ED Course 1106: Past medical records reviewed. The patient was evaluated in room B1. A complete history and physical examination was performed. 1123: Discussed the patient's case with Dr. Kasey LOPEZ OBGYAngela . He will come evaluate the patient and recommended doing CT of the abdomen. 1126: Family at bedside. 1235: Discussed the patient's case with Dr. Cristina Jordan. The patient will be evaluated for further management. 1302: The patient is still having pain in her RUQ. Medical Decision I considered multiple diagnoses including multiple trauma associated with , closed head injury, C-spine injury, intraabdominal bleed, rib fracture, seizure. The patient apparently fell down about 10 steps after a seizure. This was not witnessed and the patient has no memory of the event. She does have a prior history of seizures. The patient is currently 8 months . The patient does complain of some pain in the right upper quadrant. She initially was postictal my first evaluated her. Multiple labs and imaging were obtained. Please see above. The patient required CT of her head, neck and abdomen/pelvis due to the significant trauma especially over her right upper quadrant. A FAST exam was performed initially by Dr. Nickerson which was felt to be grossly negative. The patient's blood count was checked and rechecked. The patient did have a minimal drop in her hematocrit but no significant tachycardia or hypotension. The patient did have a small drop of blood after catheterization but the nurse felt this was due to the catheterization and not hematuria. Lamictal and Keppra levels are pending. I discussed care with the OB department and with medicine. The patient will be further evaluated in the hospital on the OB floor. The patient is known to be Rh+. Medication Reconcilliation Current Medication List: was personally reviewed by me Blood Pressure Screening Patient's blood pressure: Normal blood pressure Consults Time Called: 1120 Consulting Physician: Dr. Kasey DUMAS Returned Call: 1123 Discussed the patient's case with Dr. Kasey DUMAS . He will come evaluate the patient and recommended doing CT of the abdomen. Additional Consults: Time Called: 1235 Consulted Physician: Dr. Cristina Jordan Returned Call: 1235 Additional Comments: Discussed the patient's case with Dr. Cristina Jordan. The patient will be evaluated for further management. Impression Primary Impression: Multiple trauma Additional Impressions: Seizure disorder Critical Care I have personally spent greater than 75 minutes of critical care time in the direct management of this patient. This includes bedside care, interpretation of diagnostic studies, and testing, discussion with consultants, patient, and family members, and other required patient management activities. This 75 minutes is in excess of all separately billable procedures. Scribe Attestation The scribe's documentation has been prepared under my direction and personally reviewed by me in its entirety. I confirm that the note above accurately reflects all work, treatment, procedures, and medical decision making performed by me. Departure Information Dispostion Other (will be evaluated for further examination) Referrals Alma Guaman M.D. (PCP) Problem Qualifiers
--- NOTE | 2017-06-04 11:40 | DIAGNOSTIC IMAGING REPORT ---
HEAD WITHOUT CONTRAST (CT) CLINICAL HISTORY: 26 years-old Female presenting with fell down 10 stairs 8 mos preg. TECHNIQUE: Multidetector CT imaging of the head was performed without the use of intravenous contrast. IV contrast: None. A dose lowering technique was used consistent with the principles of ALARA (as low as reasonably achievable). COMPARISON: None. CT DOSE (mGy.cm): The estimated cumulative dose is 1078.61. FINDINGS: Crabber topogram: Unremarkable. Ventricles and sulci normal in size. Brain parenchyma normal in appearance with preserved palacios-white differentiation. No mass effect or midline shift. No hemorrhage or acute territorial infarct. No extra-axial fluid collection. Paranasal sinuses and mastoid air cells clear. Calvarium intact. IMPRESSION: 1. No acute intracranial abnormality. Electronically signed by: Aquiles Forrester M.D. 06/04/2017 11:39 AM Dictated Date/Time: 06/04/2017 11:36 AM
--- NOTE | 2017-06-04 11:43 | DIAGNOSTIC IMAGING REPORT ---
CERVICAL SPINE W/O CLINICAL HISTORY: 26 years-old Female presenting with fell down 10 stairs 8 mos preg. TECHNIQUE: Multidetector CT of the cervical spine was performed without the use of intravenous contrast. IV contrast: None. A dose lowering technique was used consistent with the principles of ALARA (as low as reasonably achievable). COMPARISON: 05/14/2010. CT DOSE (mGy.cm): The estimated cumulative dose is 1078.61 mGy.cm. FINDINGS: Leaf Tier topogram: Unremarkable. Straightening of normal cervical lordosis likely positional. Bodies maintain normal height and alignment. Intervertebral disc spaces preserved. No acute fracture or subluxation. Paraspinal soft tissues normal. Few prominent bilateral cervical lymph nodes likely reactive. Lung apices clear. IMPRESSION: No acute osseous injury of the cervical spine. Electronically signed by: Aquiles Forrester M.D. 06/04/2017 11:42 AM Dictated Date/Time: 06/04/2017 11:39 AM
[2017-06-04 11:46] LABS: ALT/SGPT 18 U/L (12-78); AST/SGOT 18 U/L (15-37); BLOOD UREA NITROGEN 6 mg/dl (7-18); BUN/CREATININE RATIO 9.5 (10-20); CALCIUM 8.4 mg/dl (8.5-10.1); CARBON DIOXIDE 22 mmol/L (21-32); CHLORIDE 107 mmol/L (98-107); CREATININE 0.66 mg/dl (0.60-1.20); GLUCOSE 97 mg/dl (70-99); POTASSIUM 3.5 mmol/L (3.5-5.1); SODIUM 136 mmol/L (136-145)
[2017-06-04 11:49] LABS: ALB/GLOB RATIO 0.7 (0.9-2); ALKALINE PHOSPHATASE 73 U/L (45-117)
--- NOTE | 2017-06-04 11:55 | DIAGNOSTIC IMAGING REPORT ---
ABD/PELVIS NO IV OR ORAL CONT CLINICAL HISTORY: 26 years-old Female presenting with large bruise RUQ 8 mos preg. TECHNIQUE: Multidetector CT of the abdomen and pelvis was performed without the use of intravenous contrast. IV contrast: None. A dose lowering technique was used consistent with the principles of ALARA (as low as reasonably achievable). COMPARISON: 12/18/2011. CT DOSE (mGy.cm): The estimated cumulative dose is 531.68 mGy.cm. FINDINGS: Accountant Auditor topogram: Fetus noted. Lung bases: Minimal basilar opacities, likely atelectasis. Normal heart size. No pericardial or pleural effusion. Liver: Normal morphology. Normal density. Biliary: No gross biliary ductal dilatation allowing for noncontrast technique. Gallbladder surgically absent. Pancreas: Normal noncontrast appearance. Spleen: Normal noncontrast appearance. Adrenal glands: Normal noncontrast appearance. Kidneys and ureters: Normal noncontrast appearance of the renal parenchyma. Bilateral mild pelvocaliectasis with bilateral hydroureter. This likely represents hydronephrosis of . No nephrolithiasis. No perinephric fat stranding. Bladder: Incompletely evaluated secondary to underdistention. Pelvic organs: Normal third trimester gravid uterus and fetus. Allowing for noncontrast technique, the fetus is grossly normal appearing. Normal amniotic fluid volume. Posterior fundal placenta. Bowel: Normal appendix. No bowel obstruction. No gross evidence of bowel wall thickening or perienteric fat stranding. No infiltration of the mesentery. Peritoneal cavity: No free fluid or intraperitoneal gas. Lymph nodes: No gross lymphadenopathy allowing for noncontrast technique. Vasculature: Normal noncontrast appearance. Abdominal wall: Minimal infiltration of the subcutaneous tissue of the infraumbilical abdominal wall. Mild infiltration of the subcutaneous tissue of the right anterolateral abdominal wall in the right upper quadrant. A section scar may also be present. Minimal infiltration of the subcutaneous tissue in the right anterolateral thigh. Musculoskeletal: Normal. IMPRESSION: 1. Minimal superficial subcutaneous contusions in the right anterolateral abdominal wall, infraumbilical anterior abdominal wall, and right anterolateral thigh. No acute osseous injury. 2. Noncontrast technique limits evaluation for solid or hollow organ injury. Allowing for this, no free fluid or other evidence of intra-abdominal injury. 3. Normal noncontrast appearance of the gravid uterus and fetus. Electronically signed by: Aquiles Forrester M.D. 06/04/2017 11:54 AM Dictated Date/Time: 06/04/2017 11:45 AM
[2017-06-04 12:16] LABS: MANUAL MICROSCOPIC REQUIRED? NO; REVIEW REQ? NO; URINE APPEARANCE CLEAR (CLEAR); URINE BILIRUBIN NEG (NEG); URINE COLOR YELLOW; URINE NITRITE NEG (NEG); URINE PH 6.5 (4.5-7.5); URINE SPECIFIC GRAVITY 1.019 (1.000-1.030); UROBILINOGEN NEG (NEG); ZZURINE CULT IF INDIC CATH NO
[2017-06-04 12:43] LABS: HEMATOCRIT 32.2 % (37-47)
[2017-06-04] MEDS ORDERED: LORAZEPAM INJ 2 MG in SYRINGE 1 ML IV PRN (13:30)
[2017-06-04] MEDS ORDERED: LORAZEPAM 2 MG/ML 1 ML VIAL IV PRN (13:30)
--- NOTE | 2017-06-04 13:33 | Medical Consult ---
Consultation Date of Consultation: Jun 04, 2017. Attending Physician: Reason for Consultation: Breakthrough seizure History of Present Illness 26 years old female 2 with past medical history of seizure disorder since she was 13 years old. She has no history of head injury or trauma, no family history of seizure disorder. Her's her seizures were controlled for a long time with Keppra/Lamictal 2 months ago in March she had the flu, and had significant diarrhea. At that time she had a breakthrough seizure that was contributed to her diarrhea and lack of absorption. Today she takes that her to come home, apparently she was not feeling well which she does not remember the details. Her so stated he he so attacks from her in the [place]. And within 15 minutes he was at home. He saw her laying at the bottom of stairs on her bili with multiple bruises in her body and she was unresponsive. There was small amount of blood next to her lips indicating maybe she bit her tongue or lips. There was no indication of any incontinence. She was slightly difficult to arouse but she was breathing fine and her lips were not blue. He called the ambulance and she was brought to the ED. She gradually started to regain consciousness in ED and now she is fully awake alert oriented, answers all questions appropriately. Does not smoke or drink alcohol Had a healthy [id number] child Past Medical/Surgical History Medical Problems: (1) 35 weeks gestation of Status: Acute (2) Acute gastroenteritis Status: Acute (3) Breakthrough seizure Status: Acute (4) Dehydration Status: Acute (5) Dehydration Status: Acute (6) Diarrhea Status: Acute (7) Head contusion Status: Acute (8) Hypokalemia Status: Acute (9) Multiple trauma Status: Acute (10) Status: Acute (11) Status: Acute (12) Status: Acute (13) Rib contusion Status: Acute (14) Right shoulder pain Status: Acute (15) Seizure Status: Acute (16) Seizure disorder Status: Acute (17) Seizure disorder Status: Acute (18) Seizure disorder Status: Acute (19) Shoulder pain, right Status: Acute (20) Third trimester Status: Acute (21) UTI (urinary tract infection) Status: Acute Family History Cancer Diabetes mellitus Heart disease Hypertension Social History Smoking Status: Never Smoker Drug Use: none Marital Status: Housing Status: lives with significant other Occupation Status: employed Allergies Coded Allergies: Penicillins (Verified Allergy, Intermediate, HIVES, 06/04/17) PT HAD HIVES WITH AMOXICILLIN AND WAS TOLD TO STAY AWAY FROM [facility] Amoxicillin (Verified Allergy, Mild, hives, 06/04/17) Tramadol (Verified Allergy, Unknown, SHORTNESS OF BREATH, 06/04/17) Ondansetron (Verified Adverse Reaction, Unknown, Constipation, 06/04/17) Good anti-emetic control but does develop constipation with higher dosing Prochlorperazine (Verified Adverse Reaction, Unknown, DYSTONIC RX, ) Promethazine (Verified Adverse Reaction, Unknown, dystonic reaction , ) Home Medications Reviewed as in history of present illness Review of Systems Constitutional: No fever, No chills, No sweats, No weight loss, No weakness, No fatigue, No problem reported Eyes: No worsening of vision, No eye pain, No redness, No discharge, No diplopia, No problem reported ENT: No hearing loss, No unusual epistaxis, No nasal symptoms, No sore throat, No tinnitus, No dental problems, No trouble swallowing, No problem reported Respiratory: No cough, No sputum, No wheezing, No shortness of breath, No dyspnea on exertion, No dyspnea at rest, No hemoptysis, No problem reported Cardiovascular: No chest pain, No orthopnea, No PND, No edema, No claudication , No palpitations, No problem reported Abdomen: + problem reported (usually she gets hemorrhoids with / constipation/some blood when she wiped herself at the toilet, she said she will discuss that with her OB physician), No pain, No nausea, No vomiting, No diarrhea, No constipation, No GI bleeding Musculoskeletal: No joint pain, No muscle pain, No swelling, No calf pain, No problem reported Genitourinary - Female: No dysuria, No urinary frequency, No urinary urgency, No urinary incontinence, No urinary retention, No hematuria, No dysmenorrhea, No menorrhagia, No metrorrhagia, No rash, No vaginal bleeding, No vaginal discharge, No vaginal itching, No vulvodynia, No , No problem reported Neurologic: No memory loss, No paralysis, No weakness, No numbness/tingling, No vertigo, No balance problems, No problem reported Endocrine: No fatigue, No excessive thirst, No excessive urination, No problem reported Hematologic / Lymphatic: No abnormal bleeding/bruising, No clotting problems, No swollen lymph nodes, No night sweats, No problem reported Integumentary: No rash, No itch, No new/changing skin lesions, No color change , No bleeding, No problem reported Physical Exam Date Time Temp Pulse Resp B/P (MAP) Pulse Ox O2 Delivery O2 Flow Rate FiO2 06/04/17 12:22 97 18 119/66 97 Room Air 06/04/17 12:04 96 06/04/17 11:56 95 24 118/75 98 Room Air 06/04/17 11:19 37.0 105 26 118/74 100 Room Air 06/04/17 11:15 100 Room Air General Appearance: WD/WN, no apparent distress Head: normocephalic, atraumatic, + pertinent finding (big bruise on the right side of her face around her right orbit) Eyes: normal inspection, PERRL, EOMI, + pertinent finding (was on the right orbit) ENT: normal ENT inspection, hearing grossly normal Neck: supple, no adenopathy, thyroid normal Respiratory/Chest: chest non-tender, lungs clear, normal breath sounds, no respiratory distress, no accessory muscle use Cardiovascular: regular rate, rhythm, no edema, no gallop, no JVD, no murmur, normal peripheral pulses Abdomen/GI: non tender, soft, no organomegaly, no pulsatile mass, + pertinent finding (deep palpation was avoided due to the , has a bruise on the right side of her abdomen) Back: normal inspection Extremities/Musculoskelatal: normal inspection, no calf tenderness, normal capillary refill, no pedal edema 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, no motor/sensory deficits, alert, normal mood/affect, normal reflexes, oriented x 3 Skin: normal color, warm/dry, no rash Laboratory Results Last 24 Hours Test 06/04/17 11:10 06/04/17 11:55 06/04/17 12:13 06/04/17 12:15 White Blood Count 11.01 K/uL Red Blood Count 4.24 M/uL Hemoglobin 11.7 g/dL 10.5 g/dL Hematocrit 34.9 % 32.2 % Mean Corpuscular Volume 82.3 fL Mean Corpuscular Hemoglobin 27.6 pg Mean Corpuscular Hemoglobin Concent 33.5 g/dl Platelet Count 303 K/uL Mean Platelet Volume 9.4 fL Neutrophils (%) (Auto) 76.5 % Lymphocytes (%) (Auto) 16.9 % Monocytes (%) (Auto) 5.5 % Eosinophils (%) (Auto) 0.5 % Basophils (%) (Auto) 0.2 % Neutrophils # (Auto) 8.42 K/uL Lymphocytes # (Auto) 1.86 K/uL Monocytes # (Auto) 0.61 K/uL Eosinophils # (Auto) 0.06 K/uL Basophils # (Auto) 0.02 K/uL RDW Standard Deviation 40.2 fL RDW Coefficient of Variation 13.3 % Immature Granulocyte % (Auto) 0.4 % Immature Granulocyte # (Auto) 0.04 K/uL Sodium Level 136 mmol/L Potassium Level 3.5 mmol/L Chloride Level 107 mmol/L Carbon Dioxide Level 22 mmol/L Anion Gap 7.0 mmol/L Blood Urea Nitrogen 6 mg/dl Creatinine 0.66 mg/dl Estimated GFR () 142.3 Estimated GFR (Non- 122.8 BUN/Creatinine Ratio 9.5 Random Glucose 97 mg/dl Calcium Level 8.4 mg/dl Total Bilirubin 0.2 mg/dl Aspartate Amino Transf (AST/SGOT) 18 U/L Alanine Aminotransferase (ALT/SGPT) 18 U/L Alkaline Phosphatase 73 U/L Total Protein 7.1 gm/dl Albumin 2.9 gm/dl Globulin 4.2 gm/dl Albumin/Globulin Ratio 0.7 Urine Color YELLOW Urine Appearance CLEAR Urine pH 6.5 Urine Specific [place] 1.019 Urine Protein NEG Urine Glucose (UA) NEG Urine Ketones NEG Urine Occult Blood TRACE Urine Nitrite NEG Urine Bilirubin NEG Urine Urobilinogen NEG Urine Leukocyte Esterase NEG Urine WBC (Auto) 1-5 /hpf Urine RBC (Auto) 0-4 /hpf Urine Hyaline Casts (Auto) 1-5 /lpf Urine Epithelial Cells (Auto) 10-20 /lpf Urine Bacteria (Auto) NEG Assessment & Plan 26 years old female with history of seizure disorder controlled on Keppra/ Lamictal presented to the ED with breakthrough seizure status post fall down the stairs and multiple bruises. Assessment Breakthrough seizure Multiple body bruises Dehydration 8 months Constipation/hemorrhoids/some hemorrhoidal bleed as per patient, she wants to discuss this with her OB physician, she said it happened in previous Plan Agree with Dr. Allen with all the images that has been obtained so far. Despite of risk of radiation exposure, I agree that benefit at this point did surpass the risk. With a large bruise on her anterior abdominal wall, and drop in hemoglobin reasonable concern for splenic injury or subcapsular hemorrhage promoted further imaging study. Also a large bruise on her right eye was suspicious for orbital fissure or fracture or any intracranial injury, likely all images came back negative for serious injury. She does not remember taking her Keppra today, last time she remember taking it was last night She did not receive any Ativan or any antiseizure medication so far. To prevent any eminent second seizure breakthrough, will load her with 500 mg of Keppra IV now until seen by neurologist levels of Keppra and Lamictal were sent I consulted patient's neurologist to help us adjust medications dosages Started IV fluid hydration, with NSS and small dose of potassium Also ordered Ativan when necessary seizure and ordered seizure precautions Ordered a sick labs for tomorrow In case of significant hemoglobin drop, ultrasound abdomen should be repeated to rule out any subcapsular splenic hemorrhage Also I ordered SCD boots for DVT prophylaxis I recommend that the patient stay overnight for observation If everything looks good tomorrow patient can be discharged after adjusting her antiseizure medications by neurologist We do not have to see the patient again unless primary team needs us If everything is all right patient can be discharged tomorrow from medical perspective Please call us if we can help with anything.
[2017-06-04] MEDS ORDERED: LEVETIRACETAM IV 1,000 MG in DEXTROSE 5% 100ML 100 ML IV STA (13:41)
[2017-06-04] MEDS ORDERED: SODIUM CHLORIDE 0.9% 500ML 500 ML IV SCH (13:42)
[2017-06-04] MEDS ORDERED: ACETAMINOPHEN 500 MG TAB PO PRN (13:45)
[2017-06-04] MEDS ORDERED: OXYCODONE/ACETAMINOPHEN 5-325 TAB PO PRN (13:45)
[2017-06-04] MEDS ORDERED: NSS + 20MEQ KCL 1000ML 1,000 ML IV SCH (13:45)
[2017-06-04] MEDS ORDERED: IV FLUIDS COMPLETED PRN (14:30)
[2017-06-04 14:57] LABS: HEMATOCRIT 33.7 % (37-47)
[2017-06-04 15:23] VITALS: BP 114/68; PULSE 89; O2SAT 100
[2017-06-04] MEDS ORDERED: LACTATED RINGER'S 1000ML 1,000 ML IV SCH (21:00)
[2017-06-04] MEDS ORDERED: LAMO1TAB PO (21:39)
[2017-06-04] MEDS ORDERED: PRENCAP38 PO (21:40)
[2017-06-05] MEDS ORDERED: OXYC-57 PO (08:18)
== END 2017-06-04 15:23 | disposition home or self-care (01) ==
LOC: EDBD 11:05 → C.EDB 11:06 → EDBEDREQ 13:34 → ENRESERV 15:03 → C.EDB 15:23 → CANBEDREQ 17:27
DX: S30.1XXA Contusion of abdominal wall, initial encounter (principal); S70.11XA Contusion of right thigh, initial encounter; W10.9XXA Fall (on) (from) unspecified stairs and steps, initial encounter; O99.353 Diseases of the nervous system complicating pregnancy, third trimester; G40.909 Epilepsy, unspecified, not intractable, without status epilepticus; M54.2 Cervicalgia; Z83.3 Family history of diabetes mellitus; Z82.49 Family history of ischemic heart disease and other diseases of the circulatory system

== ENCOUNTER 2017-06-04 15:38 | Observation (INO) | payer OTHER ==
[~2017-06-04] VITALS: Ht 165.1 cm; Wt 82.3 kg
[2017-06-04] MEDS ORDERED: LACTATED RINGER'S 1000ML 1,000 ML IV SCH (16:11)
[2017-06-04] MEDS ORDERED: ACETAMINOPHEN 325 MG TAB PO PRN (16:15)
[2017-06-04] MEDS ORDERED: IV FLUIDS COMPLETED PRN (16:45)
[2017-06-04 16:52] VITALS: Ht 165.1 cm; Wt 82.3 kg
[2017-06-04] MEDS ORDERED: LORAZEPAM 2 MG/ML 1 ML VIAL IV PRN (20:00)
[2017-06-04] MEDS ORDERED: LORAZEPAM INJ 2 MG in SYRINGE 1 ML IV PRN (20:00)
[2017-06-04] MEDS ORDERED: OXYCODONE/ACETAMINOPHEN 5-325 TAB PO PRN (20:00)
[2017-06-04] MEDS ORDERED: NSS + 20MEQ KCL 1000ML 1,000 ML IV SCH (20:00)
[2017-06-04 20:08] LABS: BASO % 0.5 %; BASO ABS # 0.05 K/uL (0-0.2); EOS % 0.9 %; HEMOGLOBIN 11.2 g/dL (12.0-16.0); IG# 0.06 K/uL (0.00-0.02); LYMPH % 28.4 %; MEAN CELL VOLUME 82.9 fL (80-100); MEAN CORPUSCULAR HEMOGLOBIN 27.3 pg (25-34); MEAN CORPUSCULAR HGB CONC 32.9 g/dl (32-36); MEAN PLATELET VOLUME 9.3 fL (7.4-10.4); MONO ABS # 0.63 K/uL (0.11-0.59); NEUT % 63.6 %; NEUT ABS # 6.73 K/uL (1.4-6.5); PLATELET COUNT 261 K/uL (130-400); RED CELL DISTRIBUTION WIDTH CV 13.3 % (11.5-14.5); RED CELL DISTRIBUTION WIDTH SD 40.6 fL (36.4-46.3); WHITE BLOOD COUNT 10.57 K/uL (4.8-10.8)
[2017-06-04 20:31] LABS: ALBUMIN 2.6 gm/dl (3.4-5.0); ALT/SGPT 16 U/L (12-78); AST/SGOT 16 U/L (15-37); BLOOD UREA NITROGEN 5 mg/dl (7-18); CALCIUM 7.8 mg/dl (8.5-10.1); CARBON DIOXIDE 22 mmol/L (21-32); CREATININE 0.56 mg/dl (0.60-1.20); GLUCOSE 101 mg/dl (70-99); SODIUM 140 mmol/L (136-145)
[2017-06-04 20:33] LABS: ALKALINE PHOSPHATASE 69 U/L (45-117); PHOSPHORUS 2.6 mg/dl (2.5-4.9); TOTAL PROTEIN 6.5 gm/dl (6.4-8.2)
[2017-06-04] MEDS ORDERED: LAMO1TAB PO ×2 (21:39)
[2017-06-04] MEDS ORDERED: PRENCAP38 PO ×2 (21:40)
[2017-06-04] MEDS ORDERED: LEVETIRACETAM 500 MG TAB PO STA (23:33)
[2017-06-05] MEDS ORDERED: LAMICTAL 50 MG PO STA (00:07)
[2017-06-05] MEDS ORDERED: LAMICTAL 300 MG PO STA (00:08)
[2017-06-05] MEDS: LAMICTAL 50 MG PO SCH ×2 (00:11→08:31)
[2017-06-05] MEDS ORDERED: NURSING VERBAL MED ORDER ONE ×2 (06:45→08:00)
[2017-06-05] MEDS ORDERED: LACTATED RINGER'S 1000ML 1,000 ML IV SCH (07:00)
[2017-06-05] MEDS ORDERED: LAMICTAL 50 MG PO SCH ×2 (08:00)
[2017-06-05] MEDS ORDERED: LEVETIRACETAM 500 MG TAB PO SCH (08:00)
[2017-06-05] MEDS ORDERED: PRENATAL VITAMIN TAB PO SCH (08:00)
[2017-06-05] MEDS ORDERED: LAMICTAL 300 MG PO SCH ×2 (08:00)
--- NOTE | 2017-06-05 08:15 | Progress Note ---
Progress Note Date of Service Jun 05, 2017. Progress Note OB note Patient still has soreness in her right upper quadrant she does her baby is moving she has no vaginal bleeding she did have some bleeding with urination however this seems to be improving she believes this might even related to catheterization in the ER she has no uterine or abdominal pain. Physical exam vital signs are stable she is afebrile chest clear abdomen the right upper quadrant is certainly tender where she is bruised and her uterus is nontender heart rate tones are reactive. Impression and plan reviewed with neurology they would like to increase her Lamictal dose 400 twice a day patient will be able to go home today we'll put a discharge summary will follow up in the office in a week
--- NOTE | 2017-06-05 08:16 | Discharge Instructions ---
Discharge Instructions Date of Service Jun 05, 2017. Admission Reason for Admission: Monitering Due To Fall, ,Seizure Disorder Discharge Discharge Diagnosis / Problem: seizure Discharge Goals Goal(s): Continuing OB care Activity Recommendations Activity Limitations: per Instructions/Follow-up section . Instructions / Follow-Up Instructions / Follow-Up SPECIAL CARE INSTRUCTIONS: Call Doctor if: * Regular contractions every 5 minutes or greater than contractions in one hour. * Bleeding * Water breaks or is leaking * Decreased movement * Fever >100.4 degrees F * Pain not relieved by routine measures or pain medication ordered. FOLLOW UP VISIT: Return to Labor and Delivery on for /call for appointment time . Follow-up Visit with: When: Current Hospital Diet Patient's current hospital diet: Regular Diet Discharge Diet Recommended Diet: Regular OB Diet Pending Studies Studies pending at discharge: no Medical Emergencies . Who to Call and When: Medical Emergencies: If at any time you feel your situation is an emergency, please call 911 immediately. . Non-Emergent Contact Non-Emergency issues call your: [employer] Extension Specialist, Neurologist . . "Provider Documentation" section prepared by Wood Lam. . VTE Core Measure Inpt VTE Proph given/why not?: T.E.D. Stockings, Treatment not indicated
[2017-06-05] MEDS ORDERED: OXYC-57 PO ×2 (08:18)
--- NOTE | 2017-06-05 08:32 | Neurology Consultation ---
Neurology Consultation Date of Consultation: Jun 05, 2017. Attending Physician: Mian Lam M.D. Primary Care Physician: Alma Guaman M.D. Reason for Consultation: Patient is a 26-year-old, who was asked to see the request doctors Braulio and Carole, for neurologic consultation regarding epilepsy and . History of Present Illness Source: patient, caregiver, clinic records, hospital records This patient first started getting seizures at age 16. There is no history of significant illnesses or head trauma prior to this and she was evaluated at multiple centers including [facility], [facility], and [facility]. Some institutions did prolonged inpatient epilepsy monitoring and felt that she may have nonepileptic events, but she has been diagnosed with epilepsy. She has been following with Dr. Sharpe since April of 2015. She has a couple of different seizure types, the most common being attacked her she loses body tone and drops to the ground without warning. She has no recall of the event but apparently she can state "I do not feel well" prior to event. There have been times when the patient has had generalized stiffening and occasional incontinence of urine. Only rarely did she bite her tongue. Events can last anywhere from 30 seconds to a minute, but on rare occasions can last many minutes. She is unaware for 30 minutes to 2 hours having a postictal confusional state. She has amnesia for the event most times. Her most recent seizure was in late February of 2017 during that time she had a flu with vomiting and diarrhea. She was not getting medication regularly during that time. Prior to that she had a seizure around 6-8 months before she became . Currently she is 34 weeks 5 days with a due date of July 05 2017. During her last delivery in October of 2015 she had an increase in seizures. Clonazepam was used with success. In January of 2016 an MRI of the brain was unremarkable although there was a questionable issue with the right transverse sinus. 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 I reviewed these reports. She has been on higher doses of Keppra in the past but has experienced side effects and has lower down to 500 milligrams twice a day, maintaining on this dose throughout . She has been put on Lamictal and currently is up to 350 milligram ER twice daily. A Lamictal level was low at 3.2 April 17. She was then increased to her current dose. On May 29, a Lamictal level was 4.7 (normal 4-18). She has no significant side effects to Lamictal. Yesterday, June 04, she woke up around 0830 hours. She felt well and was not sick with cold or flu. She ate and was taking care of her [id number] daughter. Although she does not recall this she apparently texted her around 1000 hours stating that she did not feel well and that he should come home. Apparently he arrived around 1020 hours and found her at the bottom of the steps. She was confused. There was a small amount of blood noted around her mouth and she apparently had cut her lips some. She does not believe she bit her tongue. There was no incontinence of urine. She was sore some in the neck , left leg, right side, and had some abdominal pressure. She arrived at the emergency room at 1115 hours with a temperature 37.0, pulse 105 and regular, respiratory rate 26 uncomfortable, blood pressure 118/79 and O2 saturation 100 percent. Neurologic examination was unremarkable. CT scan of the head and cervical spine were unremarkable with no acute changes or fractures. CT scan of the abdomen and pelvis were unremarkable as well. CBC showed mild anemia no signs of infection. Chem profile showed a low calcium and potassium. Nursing reports no further seizures or issues overnight. The patient feels well and had no further problems. She still remains a little bit sore in her legs and neck and has bruising along the right side. She has mild bifrontal headache. She denies tinnitus, vision problems, swallowing issues or any new pain, weakness, or numbness in the limbs. She feels a little lightheaded when she stands up but is able to ambulate well to the bathroom and back. Past Medical/Surgical History Medical Problems: (1) 35 weeks gestation of Status: Acute (2) Acute gastroenteritis Status: Acute (3) Breakthrough seizure Status: Acute (4) Dehydration Status: Acute (5) Dehydration Status: Acute (6) Diarrhea Status: Acute (7) Head contusion Status: Acute (8) Hypokalemia Status: Acute (9) Multiple trauma Status: Acute (10) Status: Acute (11) Status: Acute (12) Rib contusion Status: Acute (13) Right shoulder pain Status: Acute (14) Seizure Status: Acute (15) Seizure disorder Status: Acute (16) Seizure disorder Status: Acute (17) Seizure disorder Status: Acute (18) Shoulder pain, right Status: Acute (19) Third trimester Status: Acute (20) UTI (urinary tract infection) Status: Acute History of epilepsy, not otherwise specified Thirty-four weeks Patient has no other significant medical problems with no history of hypertension, diabetes, asthma, or ulcer disease She is post October of 2015, tubes put in her ears at an early age and wisdom teeth removal. She has been post cholecystectomy and right shoulder surgery for multiple dislocations with her seizures. Family History Father, age 57, has nephrolithiasis. Mother, age 55, had a TIA, has hypertension and PCO syndrome Social History Patient herself never smoked cigarettes and does not use alcohol. 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 This is mostly office type work. She has, however, participated recently in a lot of commercial property cleaning and has been exposed to cleaning chemicals Smoking Status: Never smoker Smokeless Tobacco Use: No Alcohol Use: none Drug Use: none Marital Status: Housing Status: lives with significant other Occupation Status: employed Allergies Coded Allergies: Penicillins (Verified Allergy, Intermediate, HIVES, 06/04/17) PT HAD HIVES WITH AMOXICILLIN AND WAS TOLD TO STAY AWAY FROM [facility] Amoxicillin (Verified Allergy, Mild, hives, 06/04/17) Tramadol (Verified Allergy, Unknown, SHORTNESS OF BREATH, 06/04/17) Ondansetron (Verified Adverse Reaction, Unknown, Constipation, 06/04/17) Good anti-emetic control but does develop constipation with higher dosing Prochlorperazine (Verified Adverse Reaction, Unknown, DYSTONIC RX, ) Promethazine (Verified Adverse Reaction, Unknown, dystonic reaction , ) Current Inpatient Medications Current Inpatient Medications Medications (Trade) Dose Ordered Sig/Angela Route Start Time Stop Time Status Last Admin Dose Admin Acetaminophen (Tylenol Tab) 650 mg Q4H PRN PO 06/04/17 16:15 07/04/17 16:14 Miscellaneous (Iv Fluids Completed) 1 ea PRN PRN N/A 06/04/17 16:45 06/04/18 16:44 Oxycodone/ Acetaminophen (Percocet 5-325mg Tab) 1 tab Q12H PRN PO 06/04/17 20:00 06/18/17 19:59 06/04/17 23:45 1 TAB Lorazepam (Ativan Inj) 2 mg Q4H PRN IV 06/04/17 20:00 07/04/17 19:59 Potassium Chloride/Sodium Chloride 1,000 ml @ 75 mls/hr [id number] IV 06/04/17 20:00 07/04/17 19:59 Lorazepam 2 mg/ Syringe 2 ml @ 1 mls/min Q4H PRN IV 06/04/17 20:00 07/04/17 19:59 Levetiracetam (Keppra Tab) 500 mg BID PO 06/05/17 08:00 07/05/17 07:59 Prenat Multivit/ Strawn/Iron/Folic Ac ( Vitamin Tab) 1 tab DAILY PO 06/05/17 08:00 07/05/17 07:59 Non-Formulary Medication (Non-Formulary Patient'S Own Med) 1 ea BID PO 06/05/17 08:00 07/05/17 07:59 Lactated Ringer's 1,000 ml @ 125 mls/hr Q8H IV 06/05/17 07:00 07/05/17 06:59 Non-Formulary Medication (Non-Formulary Patient'S Own Med) 2 ea BID PO 06/05/17 08:00 07/05/17 07:59 Review of Systems Constitutional: + fatigue, No fever, No weakness Eyes: No worsening of vision, No diplopia ENT: No hearing loss, No sore throat, No tinnitus, No trouble swallowing Respiratory: No cough, No shortness of breath Cardiovascular: + chest pain, No palpitations Abdomen: No pain, No nausea Musculoskeletal: + muscle pain, No joint pain Genitourinary - Female: No dysuria, No urinary incontinence Neurologic: No memory loss, No weakness, No numbness/tingling, No vertigo, No balance problems Psychiatric: No depression symptoms, No anxiety Endocrine: + fatigue Hematologic / Lymphatic: No abnormal bleeding/bruising Integumentary: No rash Allergic / Immunologic: No hives Physical Exam Patient is right-handed. The patient is awake and alert. Speech is normal without aphasia or dysarthria. Mentation and thought processes are intact with orientation and normal fund of knowledge. Mood and affect are normal and appropriate. Appearance and grooming are normal. Long and short-term memory are intact. The discs are sharp with positive venous pulsations. There are no exudates, hemorrhages, or blood vessel changes seen. Pupils are 4mm bilaterally and reactive to light. Extraocular eye muscles are intact without nystagmus. Visual acuity and visual gallego seem normal grossly to confrontation. There are no deficits to sensation of the face bilaterally. Corneal reflexes are positive bilaterally. Facial strength and symmetry is normal bilaterally. Hearing seems intact grossly to voice and finger rub. Palate moves well without asymmetry. There is normal sternocleidomastoid and trapezius strength bilaterally. Tongue is midline with good strength bilaterally. Neck is with full range of motion without discomfort. There are no cervical bruits. There are no cranial or ocular bruits. Heart is without murmur. Cervical, thoracic, and lumbar spine paraspinal muscles have some mild nonspecific tenderness to palpation with no obvious spasm. Gait is reasonably normal, with slightly wide-based gait and good stance eyes open. With outstretched arms there is no drift. There are no resting, postural, or action tremors. There is no ataxia with [id number] testing. There is good facility in the hands. There are no abnormal involuntary movements noted. Motor strength is 5/5 diffusely in the arms bilaterally including deltoids, biceps, brachioradialis, wrist flexors and extensors, eligibility counselor, and intrinsic hand muscles. Motor strength is 5/5 diffusely in the legs bilaterally including hip flexors, quadriceps, hamstring, gastrocnemius, tibialis anterior, tibialis posterior, and peroneii muscles bilaterally. Toe extensors are normal and there is good bulk in the extensor digitorum brevis muscle bilaterally. The limbs have good tone without rigidity or spasticity, and there is no atrophy noted. Muscle bulk is normal, there is no tenderness, no myotonia noted to percussion, and no fasciculations seen. Sensory examination is intact to pin and touch throughout all four limbs. Reflexes are 2/4 in the biceps, triceps, brachioradialis, quadriceps, and Achilles tendons bilaterally. Toes are downgoing with plantar stimulation bilaterally. Peripheral pulses are present and of normal quality distally in all four limbs. There is no peripheral edema noted. Laboratory Results Past 24 Hours: 06/04/17 19:53 Red Blood Count 4.10, Mean Corpuscular Volume 82.9, Mean Corpuscular Hemoglobin 27.3, Mean Corpuscular Hemoglobin Concent 32.9, Mean Platelet Volume 9.3, Neutrophils (%) (Auto) 63.6, Lymphocytes (%) (Auto) 28.4, Monocytes (%) (Auto) 6.0, Eosinophils (%) (Auto) 0.9, Basophils (%) (Auto) 0.5, Neutrophils # (Auto) 6.73, Lymphocytes # (Auto) 3.00, Monocytes # (Auto) 0.63, Eosinophils # (Auto) 0.10, Basophils # (Auto) 0.05 06/04/17 19:53 Test 06/04/17 19:53 White Blood Count 10.57 K/uL (4.8-10.8) Red Blood Count 4.10 M/uL (4.2-5.4) Hemoglobin 11.2 g/dL (12.0-16.0) Hematocrit 34.0 % (37-47) Mean Corpuscular Volume 82.9 fL (80-100) Mean Corpuscular Hemoglobin 27.3 pg (25-34) Mean Corpuscular Hemoglobin Concent 32.9 g/dl (32-36) Platelet Count 261 K/uL (130-400) Mean Platelet Volume 9.3 fL (7.4-10.4) Neutrophils (%) (Auto) 63.6 % Lymphocytes (%) (Auto) 28.4 % Monocytes (%) (Auto) 6.0 % Eosinophils (%) (Auto) 0.9 % Basophils (%) (Auto) 0.5 % Neutrophils # (Auto) 6.73 K/uL (1.4-6.5) Lymphocytes # (Auto) 3.00 K/uL (1.2-3.4) Monocytes # (Auto) 0.63 K/uL (0.11-0.59) Eosinophils # (Auto) 0.10 K/uL (0-0.5) Basophils # (Auto) 0.05 K/uL (0-0.2) RDW Standard Deviation 40.6 fL (36.4-46.3) RDW Coefficient of Variation 13.3 % (11.5-14.5) Immature Granulocyte % (Auto) 0.6 % Immature Granulocyte # (Auto) 0.06 K/uL (0.00-0.02) Anion Gap 9.0 mmol/L (3-11) Est Creatinine Clear Calc Drug Dose 162.7 ml/min Estimated GFR () > 150.0 Estimated GFR (Non- 129.6 BUN/Creatinine Ratio 9.1 (10-20) Calcium Level 7.8 mg/dl (8.5-10.1) Phosphorus Level 2.6 mg/dl (2.5-4.9) Magnesium Level 2.1 mg/dl (1.8-2.4) Total Bilirubin 0.4 mg/dl (0.2-1) Aspartate Amino Transf (AST/SGOT) 16 U/L (15-37) Alanine Aminotransferase (ALT/SGPT) 16 U/L (12-78) Alkaline Phosphatase 69 U/L (45-117) Total Protein 6.5 gm/dl (6.4-8.2) Albumin 2.6 gm/dl (3.4-5.0) Globulin 3.9 gm/dl (2.5-4.0) Albumin/Globulin Ratio 0.7 (0.9-2) Imaging CERVICAL SPINE W/O CLINICAL HISTORY: 26 years-old Female presenting with fell down 10 stairs 8 mos preg. TECHNIQUE: Multidetector CT of the cervical spine was performed without the use of intravenous contrast. IV contrast: None. A dose lowering technique was used consistent with the principles of ALARA (as low as reasonably achievable). COMPARISON: 05/14/2010. CT DOSE (mGy.cm): The estimated cumulative dose is 1078.61 mGy.cm. FINDINGS: Senior Systems Software Engineer topogram: Unremarkable. Straightening of normal cervical lordosis likely positional. Bodies maintain normal height and alignment. Intervertebral disc spaces preserved. No acute fracture or subluxation. Paraspinal soft tissues normal. Few prominent bilateral cervical lymph nodes likely reactive. Lung apices clear. IMPRESSION: No acute osseous injury of the cervical spine. Electronically signed by: Aquiles Forrester M.D. 06/04/2017 11:42 AM HEAD WITHOUT CONTRAST (CT) CLINICAL HISTORY: 26 years-old Female presenting with fell down 10 stairs 8 mos preg. TECHNIQUE: Multidetector CT imaging of the head was performed without the use of intravenous contrast. IV contrast: None. A dose lowering technique was used consistent with the principles of ALARA (as low as reasonably achievable). COMPARISON: None. CT DOSE (mGy.cm): The estimated cumulative dose is 1078.61. FINDINGS: Senior Systems Software Engineer topogram: Unremarkable. Ventricles and sulci normal in size. Brain parenchyma normal in appearance with preserved palacios-white differentiation. No mass effect or midline shift. No hemorrhage or acute territorial infarct. No extra-axial fluid collection. Paranasal sinuses and mastoid air cells clear. Calvarium intact. IMPRESSION: 1. No acute intracranial abnormality. Electronically signed by: Aquiles Forrester M.D. 06/04/2017 11:39 AM Impression 1. Epilepsy Patient has a significant epilepsy history on 2 anticonvulsants currently. Recent Lamictal level was low normal at 4.7 This patient likely had a breakthrough seizure resulting in a fall down the stairs with considerable bruising, but fortunately no apparent fractures, concussion, or injury to her baby. Currently her neurologic examination is unremarkable with no focal neurologic signs, meningeal signs, or encephalopathy. 2. Thirty-four weeks 5 days , due for a planned July 04, 2016 The baby does not seem to be in distress currently 3. Fall down steps, secondary to presumed drop attack seizure (which is one of her typical seizure types), with right lateral rib cage/ flank bruising She appears to have an unremarkable neurologic exam and I do not believe she has had a concussion. Plan 1. Increase Lamictal to ER 400 milligrams twice daily 2. I see no need for additional neurologic testing at this time, including any imaging studies or EEG. 3. Increase activity and diet as able. 4. Repeat trough Lamictal level in 2 weeks. 5. Keep Keppra the same for now at 500 milligrams twice daily p.o. 6. Follow up with Dr. Sharpe as an outpatient (suggest sometime in the next 1 -2 weeks). I spoke with Dr. Sharpe via telephone regarding this case and she generally agrees with the above plan. I have spoken with Dr. Lam regarding this case including differential diagnosis and treatment options. Overall, I spent 60 minutes with this case including review of records, review of imaging studies, discussion of her case with Drs. Lam and Annemarie, her nurse at the patient's bedside, and the patient.
--- NOTE | 2017-06-10 09:05 | DISCHARGE SUMMARY ---
Fátima was admitted under observation status for a fall after a seizure. She was 34 weeks plus as well. She did have a fall in her face and also her right upper quadrant. She was assessed in the ER and was cleared from that point of view. She was observed because the fall resulted in bruising in the right upper quadrant and she was monitored for the day and the night from the 27th to the 28th. He heart rate was reactive. There was no sign of vaginal bleeding and her pain improved. The patient was discharged home. SUBJECTIVE: The patient was ambulating, tolerating an oral diet. Her pain did require Percocet, but was controlled with this. She stated her fetus was active. PHYSICAL EXAMINATION: VITAL SIGNS: Stable. She was afebrile. ABDOMEN: The uterus was nontender. The right upper quadrant was very tender where she had fallen, there was bruising. IMPRESSION AND PLAN: Discharge home as fetus reactive. The patient advised to watch for bleeding and other concerning signs.
--- NOTE | 2017-06-22 07:34 | Medical Consult ---
History General Date of Service: June 04, 2017 Stated Complaint: Monitering Due To Fall, ,Seizure Disorder I was not called with this consult particularly since I was not available after 1900 and the consult was from 1999. Since I was not notified of the consult I would have no way on knowing that I needed to perform it. HPI The patient is a 26 year old female who presents to [facility] with complaints of Monitering Due To Fall, ,Seizure Disorder. The patient's primary care provider is Alma Guaman M.D.. Family History Cancer Diabetes mellitus Heart disease Hypertension Social History Hx Tobacco Use In Past Year?: No Smoking Status: Never Smoker Marital status: Housing status: lives with significant other Occupational Status: employed Immunizations History of Influenza Vaccine: N/A History of Tetanus Vaccine?: Unknown History of Pneumococcal: No History of Hepatitis B Vaccine: Yes History of MDRO History of MDRO: No Allergies Coded Allergies: Tramadol (Verified Allergy, Severe, SHORTNESS OF BREATH, 06/10/17) Amoxicillin (Verified Allergy, Intermediate, hives, 06/10/17) Penicillins (Verified Allergy, Intermediate, HIVES, 06/10/17) PT HAD HIVES WITH AMOXICILLIN AND WAS TOLD TO STAY AWAY FROM [facility] Prochlorperazine (Verified Adverse Reaction, Intermediate, DYSTONIC RX, 06/10/17) Promethazine (Verified Adverse Reaction, Intermediate, dystonic reaction , 06/10/17) Ondansetron (Verified Adverse Reaction, Mild, Constipation, 06/10/17) Good anti-emetic control but does develop constipation with higher dosing Current Medications Reported Home Medications Medications Dose Route/Sig Max Daily Dose Days Date Category Dose Instructions Zofran Odt (Ondansetron HCl) 4 Mg Tab 4 Mg SL Q6H 06/10/17 Rx Lamictal Xr (Lamotrigine) 50 Mg Tab 100 Mg PO BID 06/10/17 Reported TOTAL DOSE: 400MG BID Percocet 5MG/325MG (Oxycodone/Acetaminophen) Tab 1 Tab PO Q12H PRN 06/05/17 Rx PAIN Pnv-Dha ( Without A W/ Fe Fumar) 1 Cap Cap 1 Cap PO DAILY 90 06/04/17 Reported Lamictal Xr (Lamotrigine) 300 Mg Tab 300 Mg PO BID 12/27/17 Reported TOTAL DOSE: 400MG BID Keppra (Levetiracetam) 500 Mg Tab 500 Mg PO BID 02/11/17 Reported
[2017-06-23] MEDS ORDERED: KLN/5 PO (10:43)
[2017-06-23] MEDS ORDERED: PREN1TAB29 PO (10:43)
== END 2017-06-05 09:15 | disposition home or self-care (01) ==
LOC: C.LD 15:38 → C.OPB 15:38 → C.LD 16:12 → C.OPB 16:12 → C.OBG 19:21
PROVIDERS: ADMIT Obstetrics & Gynecology; ATTEND Obstetrics & Gynecology
DX: O9A.213 Injury, poisoning and certain other consequences of external causes complicating pregnancy, third trimester (principal); S30.1XXA Contusion of abdominal wall, initial encounter; G40.909 Epilepsy, unspecified, not intractable, without status epilepticus; Z3A.34 34 weeks gestation of pregnancy; W19.XXXA Unspecified fall, initial encounter; Z79.899 Other long term (current) drug therapy

== ENCOUNTER 2017-06-10 14:06 | Emergency (ER) | payer OTHER ==
[~2017-06-10] VITALS: Ht 165.1 cm; Wt 82.8 kg
[~2017-06-10 14:06] MED LIST changes: +OXYC-57 PO; +PRENCAP38 PO
[2017-06-10 14:18] VITALS: TEMP 36.9; Ht 165.1 cm; Wt 82.8 kg
[2017-06-10 14:23] VITALS: O2SAT 98
[2017-06-10 15:14] LABS: BASO % 0.1 %; BASO ABS # 0.01 K/uL (0-0.2); HEMOGLOBIN 10.4 g/dL (12.0-16.0); IG# 0.08 K/uL (0.00-0.02); LYMPH % 9.2 %; LYMPH ABS # 1.23 K/uL (1.2-3.4); MEAN CELL VOLUME 82.3 fL (80-100); MEAN CORPUSCULAR HEMOGLOBIN 26.7 pg (25-34); MEAN CORPUSCULAR HGB CONC 32.5 g/dl (32-36); MEAN PLATELET VOLUME 9.5 fL (7.4-10.4); MONO ABS # 0.27 K/uL (0.11-0.59); NEUT % 88.1 %; NEUT ABS # 11.72 K/uL (1.4-6.5); PLATELET COUNT 260 K/uL (130-400); RED CELL DISTRIBUTION WIDTH CV 13.6 % (11.5-14.5); RED CELL DISTRIBUTION WIDTH SD 40.7 fL (36.4-46.3); WHITE BLOOD COUNT 13.31 K/uL (4.8-10.8)
[2017-06-10] MEDS ORDERED: LAMO50TA PO (15:14)
[2017-06-10] MEDS ORDERED: DiphenhydrAMINE HCL 50 MG/ML VIAL IV STA (15:24)
[2017-06-10 15:31] LABS: ALBUMIN 2.5 gm/dl (3.4-5.0); AST/SGOT 16 U/L (15-37); BLOOD UREA NITROGEN 6 mg/dl (7-18); CALCIUM 7.8 mg/dl (8.5-10.1); CARBON DIOXIDE 20 mmol/L (21-32); GLUCOSE 102 mg/dl (70-99); POTASSIUM 3.5 mmol/L (3.5-5.1); SODIUM 135 mmol/L (136-145)
[2017-06-10 15:43] LABS: ALKALINE PHOSPHATASE 70 U/L (45-117); ALT/SGPT 15 U/L (12-78); TOTAL PROTEIN 6.3 gm/dl (6.4-8.2)
[2017-06-10] MEDS ORDERED: CEFTRIAXONE SOD INJ 1 GM ADDVIAL IV STA (16:16)
--- NOTE | 2017-06-10 16:18 | DIAGNOSTIC IMAGING REPORT ---
LIMITED (US) CLINICAL HISTORY: n/v pain TECHNIQUE: Ultrasound COMPARISON STUDY: None FINDINGS: Single, viable intrauterine . Fundal placenta. position is cephalic. heart rate is 124 bpm. Estimated gestational age is 34 weeks 2 days. Amniotic fluid index 17 cm. IMPRESSION: Single, viable intrauterine of approximately 34 weeks 2 days gestational age. The above report was generated using voice recognition software. It may contain grammatical, syntax or spelling errors. Electronically signed by: Gil Pleitez M.D. 06/10/2017 4:17 PM Dictated Date/Time: 06/10/2017 4:15 PM
[2017-06-10] MEDS ORDERED: MECLIZINE HCL 25 MG TAB PO STA (16:34)
[2017-06-10] MEDS ORDERED: PROCHLORPERAZINE 5 MG/ML 2 ML VIAL IV STA (17:14)
[2017-06-10] MEDS ORDERED: SODIUM CHLORIDE 0.9% 500ML 500 ML IV ONE (17:15)
[2017-06-10] MEDS ORDERED: ONDANSETRON 4MG OD TAB PO STA (18:37)
[2017-06-10] MEDS ORDERED: ONDA4TAB10 SL (18:53)
--- NOTE | 2017-06-10 18:53 | EMERGENCY ROOM VISIT NOTE ---
History Report prepared by Mary: Darrin Richmond Under the Supervision of: Dr. Marco Blum M.D. First contact with patient: 14:22 Chief Complaint: DIZZY Stated Complaint: VOMIT/DIZZY, POSS. OVERDOSE--LAMICTAL Nursing Triage Summary: Pt presents to room b10 via als. pt is 36 weeks preg. pt denies any abd pain or vaginal discharge. pt reports onset of dizziness, nausea, vomitting this am. pt has hx of seizures and reports she possibly took an extra dose of keppra and lamictal last night. pt actively vomitting upon arrival to ed. History of Present Illness The patient is a 26 year old WF 37w by LMP who presents to the Emergency Room with complaints of dizziness. Patient had complained of some mild vertiginous-like symptoms. Patient denies any recent falls. Of note the patient was involved in an accident where she fell down some stairs and did have a brief observation period which she was cleared both medically and from an [employer] person is perspective and told to follow up as an outpatient. Patient did call her neurologist that does see her for her seizure disorder and stated that she had potentially take an extra dose of Lamictal. The neurologist recommended that she not taken her morning dose and that she could resume her evening dose. Patient denies any recent seizures. Patient denies any other recent trauma. Patient has no numbness tingling or weakness. Patient does follow-up with [facility]. Patient denies any shortness of breath. She does complain of some very mild chest pain. Patient has had some nausea but without any vomiting. Source of History: patient Onset: earlier this morning Position: other (Global) Symptom Intensity: moderate Quality: other (Dizziness) Timing: constant Associated Symptoms: + chest pain (very mild), + nausea, No SOB, No vomiting , No weakness, No numbness Note: She denies any recent falls, seizures, or trauma. Review of Systems See HPI for pertinent positives and negatives. A total of ten systems were reviewed and were otherwise negative. Past Medical & Surgical Medical Problems: (1) 37 weeks gestation of (2) 39 weeks gestation of (3) Breech presentation (4) C. difficile diarrhea (5) Dehydration, moderate (6) Epilepsy (7) Epilepsy affecting in third trimester (8) Maternal seizure disorder during in third trimester (9) Nausea and vomiting during (10) (11) Seizure (12) Seizure disorder during in third trimester Surgical Problems: (1) Hx of cholecystectomy (2) S/P myringotomy with insertion of tube (3) Status post shoulder surgery Family History Cancer Diabetes mellitus Heart disease Hypertension Social History Smoking Status: Never Smoker Alcohol Use: occasionally Drug Use: none Marital Status: Housing Status: lives with significant other Occupation Status: employed Current/Historical Medications Scheduled Cefdinir (Omnicef), 300 MG PO Q12H Lamotrigine (Lamictal Xr), 300 MG PO BID Lamotrigine (Lamictal Xr), 100 MG PO BID Levetiracetam (Keppra), 500 MG PO BID Ondasetron Odt (Zofran Odt), 4 MG SL Q6H Without A W/ Fe Fumar (Pnv-Dha), 1 CAP PO DAILY Scheduled PRN Oxycodone/Acetaminophen 5MG/325MG (Percocet 5MG/325MG), 1 TAB PO Q12H PRN for Pain Allergies Coded Allergies: Tramadol (Verified Allergy, Severe, SHORTNESS OF BREATH, 06/10/17) Amoxicillin (Verified Allergy, Intermediate, hives, 06/10/17) Penicillins (Verified Allergy, Intermediate, HIVES, 06/10/17) PT HAD HIVES WITH AMOXICILLIN AND WAS TOLD TO STAY AWAY FROM [facility] Prochlorperazine (Verified Adverse Reaction, Intermediate, DYSTONIC RX, 06/10/17) Promethazine (Verified Adverse Reaction, Intermediate, dystonic reaction , 06/10/17) Ondansetron (Verified Adverse Reaction, Mild, Constipation, 06/10/17) Good anti-emetic control but does develop constipation with higher dosing Physical Exam Vital Signs Date Time Temp Pulse Resp B/P (MAP) Pulse Ox O2 Delivery O2 Flow Rate FiO2 06/10/17 19:16 91 18 117/65 97 06/10/17 18:14 94 06/10/17 18:11 94 18 104/65 96 Room Air 06/10/17 17:20 98 18 118/67 98 Room Air 113 128/73 105 117/63 06/10/17 17:06 96 18 118/67 98 Room Air 06/10/17 15:24 102 18 109/72 98 Room Air 06/10/17 14:29 87 06/10/17 14:23 98 Room Air 06/10/17 14:18 36.9 100 22 123/68 98 Room Air Physical Exam GENERAL: Awake, alert, well-appearing, NAD HENT: Normocephalic, atraumatic. EYES: Normal conjunctiva. Sclera non-icteric. NECK: Supple. No nuchal rigidity. FROM. RESPIRATORY: CTAB, no rhonchi, wheezing, crackles CARDIAC: tachy, RR, no MRG ABDOMEN: Soft, NT, fundal height approx 10 cm above umbilicus MSK: No chest wall TTP, no LE edema NEURO: GCS 15, CN 2-12 intact, moves all 4s on command SKIN: No rash or jaundice noted. Medical Decision & Procedures ER Provider Diagnostic Interpretation: Radiology results as stated below per my review and radiologist interpretation: LIMITED (US) CLINICAL HISTORY: n/v pain TECHNIQUE: Ultrasound COMPARISON STUDY: None FINDINGS: Single, viable intrauterine . Fundal placenta. position is cephalic. heart rate is 124 bpm. Estimated gestational age is 34 weeks 2 days. Amniotic fluid index 17 cm. IMPRESSION: Single, viable intrauterine of approximately 34 weeks 2 days gestational age. The above report was generated using voice recognition software. It may contain grammatical, syntax or spelling errors. Electronically signed by: Gil Pleitez M.D. 06/10/2017 4:17 PM Dictated Date/Time: 06/10/2017 4:15 PM Laboratory Results 06/10/17 15:00 Red Blood Count 3.89, Mean Corpuscular Volume 82.3, Mean Corpuscular Hemoglobin 26.7, Mean Corpuscular Hemoglobin Concent 32.5, Mean Platelet Volume 9.5, Neutrophils (%) (Auto) 88.1, Lymphocytes (%) (Auto) 9.2, Monocytes (%) (Auto) 2.0, Eosinophils (%) (Auto) 0.0, Basophils (%) (Auto) 0.1, Neutrophils # (Auto) 11.72, Lymphocytes # (Auto) 1.23, Monocytes # (Auto) 0.27, Eosinophils # (Auto) 0.00, Basophils # (Auto) 0.01 06/10/17 15:00 Test 06/10/17 14:50 06/10/17 15:00 Urine Color YELLOW Urine Appearance CLEAR (CLEAR) Urine pH 7.0 (4.5-7.5) Urine Specific [place] 1.025 (1.000-1.030) Urine Protein NEG (NEG) Urine Glucose (UA) NEG (NEG) Urine Ketones 3+ (NEG) Urine Occult Blood NEG (NEG) Urine Nitrite NEG (NEG) Urine Bilirubin NEG (NEG) Urine Urobilinogen NEG (NEG) Urine Leukocyte Esterase SMALL (NEG) Urine WBC (Auto) 10-30 /hpf (0-5) Urine RBC (Auto) 0-4 /hpf (0-4) Urine Hyaline Casts (Auto) 5-10 /lpf (0-5) Urine Epithelial Cells (Auto) >30 /lpf (0-5) Urine Bacteria (Auto) 2+ (NEG) Urine Renal Epithelial Cells /lpf (0-5) Urine Opiates Screen NEG (NEG) Urine Methadone, Qualitative NEG (NEG) Urine Barbiturates NEG (NEG) Urine Phencyclidine (PCP) Level NEG (NEG) Ur Amphetamine/Methamphetamine NEG (NEG) MDMA (Ecstasy) Screen NEG (NEG) Urine Benzodiazepines Screen NEG (NEG) Urine Cocaine Metabolite NEG (NEG) Urine Marijuana (THC) NEG (NEG) White Blood Count 13.31 K/uL (4.8-10.8) Red Blood Count 3.89 M/uL (4.2-5.4) Hemoglobin 10.4 g/dL (12.0-16.0) Hematocrit 32.0 % (37-47) Mean Corpuscular Volume 82.3 fL (80-100) Mean Corpuscular Hemoglobin 26.7 pg (25-34) Mean Corpuscular Hemoglobin Concent 32.5 g/dl (32-36) Platelet Count 260 K/uL (130-400) Mean Platelet Volume 9.5 fL (7.4-10.4) Neutrophils (%) (Auto) 88.1 % Lymphocytes (%) (Auto) 9.2 % Monocytes (%) (Auto) 2.0 % Eosinophils (%) (Auto) 0.0 % Basophils (%) (Auto) 0.1 % Neutrophils # (Auto) 11.72 K/uL (1.4-6.5) Lymphocytes # (Auto) 1.23 K/uL (1.2-3.4) Monocytes # (Auto) 0.27 K/uL (0.11-0.59) Eosinophils # (Auto) 0.00 K/uL (0-0.5) Basophils # (Auto) 0.01 K/uL (0-0.2) RDW Standard Deviation 40.7 fL (36.4-46.3) RDW Coefficient of Variation 13.6 % (11.5-14.5) Immature Granulocyte % (Auto) 0.6 % Immature Granulocyte # (Auto) 0.08 K/uL (0.00-0.02) Anion Gap 9.0 mmol/L (3-11) Est Creatinine Clear Calc Drug Dose 182.8 ml/min Estimated GFR () > 150.0 Estimated GFR (Non- 134.5 BUN/Creatinine Ratio 12.1 (10-20) Calcium Level 7.8 mg/dl (8.5-10.1) Total Bilirubin 0.3 mg/dl (0.2-1) Direct Bilirubin < 0.1 mg/dl (0-0.2) Aspartate Amino Transf (AST/SGOT) 16 U/L (15-37) Alanine Aminotransferase (ALT/SGPT) 15 U/L (12-78) Alkaline Phosphatase 70 U/L (45-117) Total Protein 6.3 gm/dl (6.4-8.2) Albumin 2.5 gm/dl (3.4-5.0) Thyroid Stimulating Hormone (TSH) 0.528 uIu/ml (0.300-4.500) Laboratory results reviewed by me Medications Administered Medications (Trade) Dose Ordered Sig/Angela Route Start Time Stop Time Status Last Admin Dose Admin Diphenhydramine HCl (Benadryl Inj) 25 mg NOW STAT IV 06/10/17 15:24 06/10/17 15:25 DC 06/10/17 15:35 12.5 MG Ceftriaxone Sodium (Rocephin Inj) 1 gm NOW STAT IV 06/10/17 16:16 06/10/17 16:26 DC 06/10/17 17:11 1 GM Meclizine HCl (Antivert Tab) 25 mg NOW STAT PO 06/10/17 16:34 06/10/17 16:36 DC 06/10/17 17:31 25 MG Sodium Chloride 500 ml @ 500 mls/hr Q1H ONCE IV 06/10/17 17:15 06/10/17 18:14 DC 06/10/17 17:08 500 MLS/HR Ondansetron HCl (Zofran Odt) 4 mg NOW STAT PO 06/10/17 18:37 06/10/17 18:38 DC 06/10/17 19:05 4 MG ECG Indication: nausea, vomiting Rate (beats per minute): 98 Rhythm: normal sinus Findings: other (Normal axis, normal intervals, no STS changes or TWI) ED Course 1421: The patient was evaluated in room C6. A complete history and physical exam was performed. 1915: I reevaluated the patient. Discussed results and discharge instructions: She verbalized understanding and agreement. The patient is ready for discharge. Medical Decision The patient is a 26 year old WF 37w by LMP who presents to the Emergency Room with complaints of dizziness. Triage Nursing notes reviewed. The patient's history was concerning for dizziness and vertigo. Differential diagnosis: Etiologies such as benign positional vertigo, dehydration, hypovolemia, anemia, tumor, infection, hypoglycemia, electrolyte abnormalities, cardiac sources, intracerebral event, toxicologic, neurologic, as well as others were entertained. Patient was seen and evaluated at the bedside. Patient did complain of some dizziness which she described as vertigo she felt like the room was spinning. Patient denies any recent seizures or falls. Patient noted that she may have taken extra dose of Lamictal yesterday. Patient did speak with her primary neurologist prior to coming in today. Patient has a nonfocal neurologic exam. No nystagmus noted. Patient was given medications and was feeling improved. Patient did have blood work that was completed. I did discuss the patient's case with the neurologist who agreed that she likely did not require any advanced imaging at this time. Patient did have a ultrasound limited that was completed which did not show any free fluid in the abdomen showed a normal single IUP at 34 weeks. Patient's blood work did show some mild chronic anemia and hypocalcemia. Patient was told to continue to take her vitamins. Patient was treated symptomatically and was given some fluids. Patient was also given a first dose of antibiotics given her urinalysis showed a UTI. Patient has no flank pain and do not believe that she requires further imaging. Patient treatment. Patient was able tolerate fluids. Patient was told to follow up as an outpatient. Patient was deemed suitable for outpatient follow-up and treatment. Patient was given strict follow-up, discharge, and return precautions. All questions were answered. Patient was deemed suitable for outpatient follow-up at this time. Patient agreed with the plan of care and was safely discharged home. Medication Reconcilliation Current Medication List: was personally reviewed by me Blood Pressure Screening Patient's blood pressure: Normal blood pressure Blood pressure disposition: Did not require urgent referral Impression Primary Impression: UTI (urinary tract infection) Additional Impressions: Vertigo Anemia Scribe Attestation The scribe's documentation has been prepared under my direction and personally reviewed by me in its entirety. I confirm that the note above accurately reflects all work, treatment, procedures, and medical decision making performed by me. Departure Information Dispostion Home / Self-Care Prescriptions Cefdinir (OMNICEF) 300 Mg Cap 300 MG PO Q12H for 7 Days, #14 CAP Prov: Marco Blum M.D. 06/10/17 Ondasetron Odt (ZOFRAN ODT) 4 Mg Tab 4 MG SL Q6H for Nausea, #6 TAB Prov: Marco Blum M.D. 06/10/17 Referrals Alma Guaman M.D. (PCP) Forms HOME CARE DOCUMENTATION FORM, IMPORTANT VISIT INFORMATION Patient Instructions ED Vertigo Unspecified, My [facility] Additional Instructions Please return to the emergency department if you have worsening or recurrent symptoms not amenable to at-home treatment. Please call for a follow-up appointment with her primary care physician. Please take your medications as prescribed. If you have other concerns and/or complaints please feel free to also call your primary care physician's office or return the ED for further evaluation, management, and treatment. You may take tylenol 650 mg every 6 hours as needed for pain. Take your medications as prescribed. If taking an antibiotic consider taking a probiotic and/or eating yogurt, but at the least, please take with food as it can cause upset stomach. You have been examined and treated today on an emergency basis only. This is not a substitute for, or an effort to provide, complete comprehensive medical care. It is impossible to recognize and treat all injuries or illnesses in a single emergency department visit. It is therefore important that you follow up closely with [facility], your PCP, and/or your specialist(s). Call as soon as possible for an appointment. Thank you for your time and consideration. I look forward to speaking with you again soon. Please don't hesitate to call us if you have any questions. Problem Qualifiers Primary Impression: UTI (urinary tract infection) Urinary tract infection type: acute cystitis Hematuria presence: without hematuria Qualified Codes: N30.00 - Acute cystitis without hematuria Additional Impressions: Anemia Anemia type: unspecified type Qualified Codes: D64.9 - Anemia, unspecified
[2017-06-10] MEDS ORDERED: CEFD300C2 PO (19:05)
[2017-06-10 19:16] VITALS: BP 117/65; PULSE 91; O2SAT 97
[2017-06-23] MEDS ORDERED: KLN/5 PO (10:43)
[2017-06-23] MEDS ORDERED: PREN1TAB29 PO (10:43)
== END 2017-06-10 19:16 | disposition home or self-care (01) ==
LOC: EDBD 14:06 → C.EDB 14:07
DX: O23.43 Unspecified infection of urinary tract in pregnancy, third trimester (principal); O99.019 Anemia complicating pregnancy, unspecified trimester; O99.353 Diseases of the nervous system complicating pregnancy, third trimester; D64.9 Anemia, unspecified; G40.909 Epilepsy, unspecified, not intractable, without status epilepticus; Z3A.34 34 weeks gestation of pregnancy; Z90.49 Acquired absence of other specified parts of digestive tract; Z79.899 Other long term (current) drug therapy; Z80.9 Family history of malignant neoplasm, unspecified; Z83.3 Family history of diabetes mellitus; Z82.49 Family history of ischemic heart disease and other diseases of the circulatory system

== ENCOUNTER → 2017-06-23 | Outpatient (CLI) | payer OTHER ==
[~2017-06-23] VITALS: Ht 165.1 cm; Wt 83.3 kg
[~2017-06-23] MED LIST changes: +CLON0.5T3 PO; -LAMO1TAB75 PO; +LAMO50TA PO; +ONDA4TAB10 SL; +PREN1TAB29 PO; -PRENTAB26 PO
[2017-06-23 10:44] VITALS: Ht 165.1 cm; Wt 83.3 kg
[2017-06-23 11:44] LABS: BASO % 0.4 %; BASO ABS # 0.04 K/uL (0-0.2); EOS % 0.6 %; EOS ABS # 0.06 K/uL (0-0.5); HEMATOCRIT 32.6 % (37-47); HEMOGLOBIN 10.6 g/dL (12.0-16.0); IG# 0.06 K/uL (0.00-0.02); LYMPH % 23.6 %; LYMPH ABS # 2.21 K/uL (1.2-3.4); MEAN CELL VOLUME 81.7 fL (80-100); MEAN CORPUSCULAR HEMOGLOBIN 26.6 pg (25-34); MEAN CORPUSCULAR HGB CONC 32.5 g/dl (32-36); MEAN PLATELET VOLUME 9.5 fL (7.4-10.4); MONO % 5.3 %; NEUT % 69.5 %; PLATELET COUNT 264 K/uL (130-400); RED CELL DISTRIBUTION WIDTH SD 41.7 fL (36.4-46.3); WHITE BLOOD COUNT 9.37 K/uL (4.8-10.8)
== END | disposition home or self-care (01) ==
LOC: C.LAB 08:00 → EDSTATUS 07-04 09:00
PROVIDERS: ATTEND Obstetrics & Gynecology
DX: Z01.818 Encounter for other preprocedural examination (principal)

== ENCOUNTER 2017-06-28 06:24 | Inpatient (IN) | payer OTHER ==
[~2017-06-28] VITALS: Ht 165.1 cm; Wt 83.0 kg
[2017-06-28] VITALS (10 sets, daily range): BP systolic 112–119; BP diastolic 70–75; PULSE 68–90; TEMP 36.5–36.9; O2SAT 95–99; Ht 165.1 cm; Wt 83.0 kg
[~2017-06-28 06:24] MED LIST changes: +CEFAZOLIN IV 2,000 MG in SYRINGE 0 ML IV SCH; -OXYC-57 PO; -PRENCAP38 PO
[2017-06-28] MEDS ORDERED: LACTATED RINGER'S 1000ML 500 ML IV ONE (06:53)
[2017-06-28] MEDS ORDERED: LACTATED RINGER'S 1000ML 1,000 ML IV SCH ×2 (06:53→12:49)
[2017-06-28] MEDS ORDERED: NON-FORMULARY MEDICATION SCH (08:00)
[2017-06-28] MEDS: LAMOTRIGINE 50 MG PO SCH ×2 (08:46→20:24)
[2017-06-28] MEDS: LAMOTRIGINE 300 MG PO SCH ×2 (08:46→20:25)
[2017-06-28] MEDS: LEVETIRACETAM 500 MG TAB PO SCH ×2 (08:47→20:24)
[2017-06-28] MEDS ORDERED: LACTATED RINGER'S 1000ML 1,000 ML IV ONE (10:40)
[2017-06-28] MEDS ORDERED: CITRIC ACID/SODIUM CITRATE 15 ML UDC PO ONE (10:45)
[2017-06-28 11:01] LABS: BASO % 0.4 %; BASO ABS # 0.04 K/uL (0-0.2); EOS % 0.5 %; EOS ABS # 0.05 K/uL (0-0.5); HEMATOCRIT 32.2 % (37-47); HEMOGLOBIN 10.5 g/dL (12.0-16.0); IG# 0.04 K/uL (0.00-0.02); LYMPH % 22.2 %; LYMPH ABS # 2.24 K/uL (1.2-3.4); MEAN CELL VOLUME 79.9 fL (80-100); MEAN CORPUSCULAR HEMOGLOBIN 26.1 pg (25-34); MEAN CORPUSCULAR HGB CONC 32.6 g/dl (32-36); MEAN PLATELET VOLUME 9.5 fL (7.4-10.4); MONO % 5.2 %; MONO ABS # 0.52 K/uL (0.11-0.59); NEUT % 71.3 %; PLATELET COUNT 269 K/uL (130-400); RED CELL DISTRIBUTION WIDTH CV 13.9 % (11.5-14.5); RED CELL DISTRIBUTION WIDTH SD 40.4 fL (36.4-46.3); WHITE BLOOD COUNT 10.09 K/uL (4.8-10.8)
--- NOTE | 2017-06-28 11:02 | HISTORY & PHYSICAL EXAMINATION ---
DATE OF ADMISSION: 06/28/2017 HISTORY OF PRESENT ILLNESS: Fátima is currently 38 weeks , this is her second , 1 prior section and she does not wish to . She presented in early labor for Dr. Jain in the morning of 06/28/2017 and progressed to 1-2 cm. By the time I rechecked her, she was 3 cm plus and contractions were every 3-4 minutes and strengthening, thus she was in labor. I recommended the patient as she did not want to try . The patient also requested tubal ligation. PAST MEDICAL HISTORY: The patient has a history of seizure disorder and psychiatric illness. MEDICATIONS: Clonazepam, lamotrigine, ondansetron, vitamins. DRUG ALLERGIES: PENICILLIN, AMOXICILLIN, PROMETHAZINE, TRAMADOL. The patient states she is able to take cephalosporins. SOCIAL HISTORY: Nonsmoker, nondrinker. FAMILY HISTORY: Noncontributory. REVIEW OF SYSTEMS: Negative. PHYSICAL EXAMINATION: VITAL SIGNS: Stable. She is afebrile. Weight is 83 kilograms. CHEST EXAMINATION: Clear. CARDIOVASCULAR EXAMINATION: Normal rate and rhythm. No abnormal rhythms. ABDOMINAL EXAMINATION: Benign, gravid. CERVIX: 3 cm plus. heart rate tones category 1. Contractions 3-4 minutes. PLAN: The patient is entering into labor, does not wish to . Wishes tubal. Discussed risks including risks of bleeding, infection, injury to bowel, bladder, ureter, vessels, deep vein thrombosis and pulmonary embolus. Discussed risks of injury to the baby. Discussed the option of , patient declines this and discussed the permanency of tubal ligations and their failure rates. HEMANTH
[2017-06-28] MEDS ORDERED: MoRPHine SULFATE PF 1 MG/ML 10 ML AMP/VIAL ONE (11:46)
[2017-06-28] MEDS ORDERED: OXYTOCIN INJ 10 UNITS/ML VIAL ONE (11:47)
[2017-06-28] MEDS ORDERED: PHENYLEPHRINE 100MCG/ML 5ML SYR ONE (12:34)
[2017-06-28] MEDS ORDERED: EpHEDrine SULFATE 50MG/5ML SYR ONE (12:34)
[2017-06-28] MEDS ORDERED: OXYTOCIN INJ 20 UNITS in LACTATED RINGER'S 1000ML 1,000 ML IV SCH (12:49)
--- NOTE | 2017-06-28 12:52 | [facility] Post Operative Brief Note ---
Immediate Operative Summary Operative Date Jun 28, 2017. Pre-Operative Diagnosis Term @ 38 Weeks. Active Labor. Previous Caesarean Section. Pt Desires Repeat Caesarean Section and Sterilization. Post-Operative Diagnosis Same as Preop Procedure(s) Performed Live Female Infant at [address] 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
[2017-06-28] MEDS ORDERED: SENNA 8.6 MG TAB PO PRN (13:00)
[2017-06-28] MEDS ORDERED: BENZOCAINE 20% AER SPR 82.5 GM CAN EXT PRN (13:00)
[2017-06-28] MEDS ORDERED: PROMETHAZINE HCL INJ 25 MG in SODIUM CHLORIDE 0.9% 50ML 50 ML IV PRN (13:00)
[2017-06-28] MEDS ORDERED: ZOLPIDEM TARTRATE 5 MG TAB PO PRN (13:00)
[2017-06-28] MEDS ORDERED: MAGNESIUM HYDROXIDE SUSP 30 ML UDC PO PRN (13:00)
[2017-06-28] MEDS ORDERED: KETOROLAC TROMETHAMINE 30 MG/ML VIAL IV. PRN ×2 (13:00→18:30)
[2017-06-28] MEDS ORDERED: HYDROCORTISONE ACETATE 25 MG SUPP PR PRN (13:00)
[2017-06-28] MEDS ORDERED: SUPERCREAM 0.870 % 15GM JAR EXT PRN (13:00)
[2017-06-28] MEDS ORDERED: LANOLIN OINT EXT PRN (13:00)
[2017-06-28] MEDS ORDERED: DiphenhydrAMINE HCL 50 MG/ML VIAL IV PRN ×2 (13:00→18:30)
[2017-06-28] MEDS ORDERED: ONDANSETRON INJ 2 MG/ML 2 ML VIAL IV PRN ×3 (13:00→18:30)
[2017-06-28] MEDS ORDERED: MEPERIDINE HCL 50 MG/ML CARP IV PRN ×2 (13:00)
--- NOTE | 2017-06-28 14:48 | Anesthesiology Progress Note ---
Anesthesia Post Op Note Date & Time Jun 28, 2017 at 14:48 Notes Mental Status: alert / awake / arousable, participated in evaluation Pt Amnestic to Procedure: Yes Nausea / Vomiting: adequately controlled Pain: adequately controlled Airway Patency, RR, SpO2: stable & adequate BP & HR: stable & adequate Hydration State: stable & adequate Neuraxial Anesthesia: was administered, sensory block is resolving Anesthetic Complications: no major complications apparent
[2017-06-28] MEDS: SIMETHICONE 80 MG CHEW PO SCH ×2 (17:28→20:24)
[2017-06-28] MEDS ORDERED: EpHEDrine SULFATE INJ 50 MG/ML AMP IV PRN ×2 (18:15→18:30)
[2017-06-28] MEDS ORDERED: ATROPINE SULFATE 0.1 MG/ML 5ML SYR IV PRN (18:15)
[2017-06-28] MEDS ORDERED: MEPERIDINE HCL 25 MG/ML CARP IV PRN ×2 (18:15→18:30)
[2017-06-28] MEDS ORDERED: HYDROmorphone INJ 1 MG/ML SYR IV PRN (18:15)
[2017-06-28] MEDS ORDERED: FENTANYL CITRATE INJ 50 MCG/1 ML 2 ML VIAL IV PRN (18:15)
[2017-06-28] MEDS ORDERED: LABETALOL HCL IV 5 MG/ML 20ML IV PRN (18:15)
[2017-06-28] MEDS ORDERED: NURSING VERBAL MED ORDER ONE (18:15)
[2017-06-28] MEDS ORDERED: LACTATED RINGER'S 1000ML 500 ML IV PRN (18:16)
[2017-06-28] MEDS ORDERED: NALOXONE HCL INJ 1 MG in SODIUM CHLORIDE 0.9% 1000ML 1,000 ML IV PRN (18:16)
[2017-06-28] MEDS ORDERED: NALOXONE HCL INJ 0.08 MG in SYRINGE 1.8 ML IV PRN (18:16)
[2017-06-28] MEDS ORDERED: SODIUM CHLORIDE 0.9% 1000ML 1,000 ML IV PRN (18:16)
[2017-06-28] MEDS ORDERED: NALBUPHINE HCL INJ 10 MG/ML AMP IV PRN (18:30)
[2017-06-28] MEDS ORDERED: METOCLOPRAMIDE HCL INJ 20 MG in SODIUM CHLORIDE 0.9% 50ML 50 ML IV PRN (18:30)
[2017-06-28] MEDS ORDERED: MoRPHine SULFATE 2 MG/ML CARP IV PRN (18:30)
[2017-06-28] MEDS ORDERED: NO NARCOTICS OR SEDATIVES SCH (18:30)
[2017-06-28] MEDS ORDERED: NALOXONE HCL 0.4 MG/1 ML VIAL/CARP IV PRN (18:30)
[2017-06-28] MEDS ORDERED: MoRPHine SULFATE PF 1 MG/ML 10 ML AMP/VIAL EPI PRN (18:30)
[2017-06-28] MEDS: DOCUSATE SODIUM 100 MG CAP PO SCH (20:24)
[2017-06-29] VITALS (10 sets, daily range): BP systolic 100–110; BP diastolic 63–69; PULSE 80–90; TEMP 36.7–37; O2SAT 97–99
[2017-06-29] MEDS ORDERED: ONDANSETRON INJ 2 MG/ML 2 ML VIAL IV PRN (06:00)
[2017-06-29] MEDS ORDERED: MEPERIDINE HCL 50 MG/ML CARP IV PRN ×2 (06:00)
[2017-06-29] MEDS ORDERED: CEFAZOLIN IV 2,000 MG in DEXTROSE 5% 50ML 50 ML IV SCH (06:00)
[2017-06-29] MEDS ORDERED: ZOLPIDEM TARTRATE 5 MG TAB PO PRN (06:00)
[2017-06-29] MEDS ORDERED: DC INTRASPINAL MORPHINE ONE (06:00)
[2017-06-29] MEDS ORDERED: DiphenhydrAMINE HCL 50 MG/ML VIAL IV PRN (06:00)
[2017-06-29] MEDS ORDERED: KETOROLAC TROMETHAMINE 30 MG/ML VIAL IV. PRN (06:00)
[2017-06-29 06:17] LABS: BASO % 0.3 %; BASO ABS # 0.03 K/uL (0-0.2); EOS ABS # 0.11 K/uL (0-0.5); HEMATOCRIT 27.6 % (37-47); IG# 0.03 K/uL (0.00-0.02); LYMPH ABS # 1.99 K/uL (1.2-3.4); MEAN CELL VOLUME 80.5 fL (80-100); MEAN CORPUSCULAR HEMOGLOBIN 26.2 pg (25-34); MEAN CORPUSCULAR HGB CONC 32.6 g/dl (32-36); MEAN PLATELET VOLUME 9.4 fL (7.4-10.4); MONO % 7.8 %; MONO ABS # 0.82 K/uL (0.11-0.59); NEUT % 71.6 %; PLATELET COUNT 228 K/uL (130-400); RED CELL DISTRIBUTION WIDTH CV 13.8 % (11.5-14.5); RED CELL DISTRIBUTION WIDTH SD 40.3 fL (36.4-46.3); WHITE BLOOD COUNT 10.48 K/uL (4.8-10.8)
[2017-06-29] MEDS ORDERED: NURSING VERBAL MED ORDER ONE ×2 (07:15→20:45)
--- NOTE | 2017-06-29 07:34 | Progress Note ---
Subjective Jun 29, 2017. Subjective conversation w/ patient, physical exam, lab review Diet Tolerance: Regular Diet Lochia: Small Objective Vital Signs Date Time Temp Pulse Resp B/P (MAP) Pulse Ox O2 Delivery O2 Flow Rate FiO2 06/29/17 05:15 18 97 06/29/17 05:00 36.9 90 20 110/63 (79) 97 Room Air 06/29/17 04:15 18 97 06/29/17 03:15 18 97 06/29/17 02:15 20 98 06/29/17 01:15 20 99 06/29/17 00:15 18 99 06/28/17 23:55 99 Room Air 06/28/17 23:55 36.9 90 20 114/75 (88) 99 Room Air 06/28/17 23:15 20 99 06/28/17 22:15 14 96 06/28/17 21:15 14 95 06/28/17 20:15 36.8 72 16 112/70 (84) 98 Room Air 06/28/17 20:15 16 98 06/28/17 19:15 16 95 06/28/17 18:15 16 97 06/28/17 17:15 16 95 06/28/17 16:15 16 97 06/28/17 16:15 97 Room Air 06/28/17 16:15 36.5 68 16 119/74 (89) 97 Room Air 06/28/17 16:15 97 Room Air Physical Exam General Appearance: WELL-APPEARING Respiratory/Chest: lungs clear Abdomen: non tender Fundus: Firm Extremities: no calf tenderness Laboratory Results Last 24 Hours Test 06/28/17 10:48 06/29/17 05:58 White Blood Count 10.09 K/uL 10.48 K/uL Red Blood Count 4.03 M/uL 3.43 M/uL Hemoglobin 10.5 g/dL 9.0 g/dL Hematocrit 32.2 % 27.6 % Mean Corpuscular Volume 79.9 fL 80.5 fL Mean Corpuscular Hemoglobin 26.1 pg 26.2 pg Mean Corpuscular Hemoglobin Concent 32.6 g/dl 32.6 g/dl Platelet Count 269 K/uL 228 K/uL Mean Platelet Volume 9.5 fL 9.4 fL Neutrophils (%) (Auto) 71.3 % 71.6 % Lymphocytes (%) (Auto) 22.2 % 19.0 % Monocytes (%) (Auto) 5.2 % 7.8 % Eosinophils (%) (Auto) 0.5 % 1.0 % Basophils (%) (Auto) 0.4 % 0.3 % Neutrophils # (Auto) 7.20 K/uL 7.50 K/uL Lymphocytes # (Auto) 2.24 K/uL 1.99 K/uL Monocytes # (Auto) 0.52 K/uL 0.82 K/uL Eosinophils # (Auto) 0.05 K/uL 0.11 K/uL Basophils # (Auto) 0.04 K/uL 0.03 K/uL RDW Standard Deviation 40.4 fL 40.3 fL RDW Coefficient of Variation 13.9 % 13.8 % Immature Granulocyte % (Auto) 0.4 % 0.3 % Immature Granulocyte # (Auto) 0.04 K/uL 0.03 K/uL Assessment and Plan Problem List Medical Problems: (1) 35 weeks gestation of Status: Acute (2) Acute gastroenteritis Status: Acute (3) Anemia Status: Acute (4) Breakthrough seizure Status: Acute (5) Dehydration Status: Acute (6) Dehydration Status: Acute (7) Diarrhea Status: Acute (8) Head contusion Status: Acute (9) Hypokalemia Status: Acute (10) Multiple trauma Status: Acute (11) Status: Acute (12) Status: Acute (13) Rib contusion Status: Acute (14) Right shoulder pain Status: Acute (15) Seizure Status: Acute (16) Seizure disorder Status: Acute (17) Seizure disorder Status: Acute (18) Seizure disorder Status: Acute (19) Shoulder pain, right Status: Acute (20) Third trimester Status: Acute (21) UTI (urinary tract infection) Status: Acute (22) Vertigo Status: Acute Post-Op Day#: 1 Continue Routine Care: Patient is doing well bleeding is minimal we'll encourage ambulation today
--- NOTE | 2017-06-29 08:10 | Neurology Consultation ---
Neurology Consultation Date of Consultation: Jun 29, 2017. Attending Physician: Mian Lam M.D. Primary Care Physician: Alma Guaman M.D. Reason for Consultation: Patient is a 26-year-old, who was asked to see the request of Dr. Lam, for neurologic consultation regarding epilepsy. History of Present Illness Source: patient, caregiver, clinic records, hospital records I last saw this patient June 04, 2017 after her fall down steps from a seizure at 34 weeks . At that time a recent Lamictal level was low normal at 4.7. I increase Lamictal to ER 400 milligrams twice daily. Patient did well and although had some bruising there was no significant or permanent injury to herself or her baby. She did not seem to have a concussion and had no fractures. Patient saw Dr. Sharpe as an outpatient June 17, 2017. She was doing well and had no further events. Dr. Sharpe put the patient on 0.5 milligrams of Klonopin each evening. This was because of some breakthrough seizures around the time of her last in October of 2015. At that time, Klonopin helped. A trough Lamictal level June 23 was 5.3. Patient has had no side effects to her medication and no seizures. Patient was admitted June [address] Lam. It was uneventful and the patient has had no new events. This morning, the patient is asymptomatic with no headaches, dizziness, mentation issues, speech problems, balance issues, weakness, numbness, or other issues. Last evening she had some vertiginous feelings with head movement lasting a minute or so but she has not had this at all this morning. Patient started having seizures at age 16. She has had multiple evaluations at multiple institutions has been on different medications. Higher doses of Keppra gave her side effects. She has had a hard time getting an adequate Lamictal level during this but recently it was quite good. Prior to late May, her previous seizure was in February of 2017. Past Medical/Surgical History Medical Problems: (1) 35 weeks gestation of Status: Acute (2) Acute gastroenteritis Status: Acute (3) Anemia Status: Acute (4) Breakthrough seizure Status: Acute (5) Dehydration Status: Acute (6) Dehydration Status: Acute (7) Diarrhea Status: Acute (8) Head contusion Status: Acute (9) Hypokalemia Status: Acute (10) Multiple trauma Status: Acute (11) Status: Acute (12) Status: Acute (13) Rib contusion Status: Acute (14) Right shoulder pain Status: Acute (15) Seizure Status: Acute (16) Seizure disorder Status: Acute (17) Seizure disorder Status: Acute (18) Seizure disorder Status: Acute (19) Shoulder pain, right Status: Acute (20) Third trimester Status: Acute (21) UTI (urinary tract infection) Status: Acute (22) Vertigo Status: Acute History of epilepsy, not otherwise specified. One day post delivery of 2nd child. For in October of 2015. Post tubal ligation this hospitalization Post cholecystectomy Post right shoulder surgery for multiple dislocations with seizures. No history of cardiac disease, hypertension, diabetes, asthma, or ulcer disease. Family History Father, age 57, has nephrolithiasis. Mother, age 55, had a TIA and also has hypertension and PCO syndrome. Social History Patient has never used tobacco products or smoke cigarettes and does not use alcohol. 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 She has not been doing this recently. Smoking Status: Never smoker Smokeless Tobacco Use: No Alcohol Use: none Drug Use: none Marital Status: Housing Status: lives with significant other Occupation Status: employed Allergies Coded Allergies: Tramadol (Verified Allergy, Severe, SHORTNESS OF BREATH, 06/28/17) Amoxicillin (Verified Allergy, Intermediate, hives, 06/28/17) Penicillins (Verified Allergy, Intermediate, HIVES, 06/28/17) PT HAD HIVES WITH AMOXICILLIN AND WAS TOLD TO STAY AWAY FROM [facility] Prochlorperazine (Verified Adverse Reaction, Intermediate, DYSTONIC RX, ) Promethazine (Verified Adverse Reaction, Intermediate, dystonic reaction , 06/28/17) Current Inpatient Medications Current Inpatient Medications Medications (Trade) Dose Ordered Sig/Angela Route Start Time Stop Time Status Last Admin Dose Admin Lactated Ringer's 1,000 ml @ 125 mls/hr Q8H IV 06/28/17 06:53 07/28/17 06:52 06/28/17 08:48 125 MLS/HR Levetiracetam (Keppra Tab) 500 mg BID PO 06/28/17 08:00 07/28/17 07:59 06/28/17 20:24 500 MG Lamotrigine (Lamictal Xr) 300 mg BID PO 06/28/17 09:00 07/28/17 08:59 06/28/17 20:25 300 MG Lamotrigine (Lamictal Xr) 100 mg BID PO 06/28/17 09:00 07/28/17 08:59 06/28/17 20:24 100 MG Oxytocin 20 units/ Lactated Ringer's 1,002 ml @ 125 mls/hr Q8H1M IV 06/28/17 12:49 07/28/17 12:48 06/28/17 14:07 125 MLS/HR Lactated Ringer's 1,000 ml @ 125 mls/hr Q8H IV 06/28/17 12:49 07/28/17 12:48 06/28/17 22:19 125 MLS/HR Ibuprofen (Motrin Tab) 600 mg Q4H PRN PO 06/28/17 13:00 07/28/17 12:59 Prenat Multivit/ [place]/Iron/Folic Ac ( Vitamin Tab) 1 tab DAILY PO 06/29/17 08:00 07/29/17 07:59 Bisacodyl (Dulcolax Tab) 5 mg HS ONCE PO 06/29/17 22:00 06/29/17 22:01 Bisacodyl (Dulcolax Supp) 10 mg PRN PRN [place] 06/30/17 22:45 07/30/17 22:44 Docusate Sodium (coLACE CAP) 100 mg BID PO 06/28/17 20:00 07/28/17 19:59 06/28/17 20:24 100 MG Magnesium Hydroxide (Milk Of Magnesia Susp) 30 ml HS PRN PO 06/28/17 13:00 07/28/17 12:59 Cocaine HCl (Supercream 0.870% Cr) BID PRN EXT 06/28/17 13:00 07/12/17 12:59 Lanolin (Lanolin Oint) PRN PRN EXT 06/28/17 13:00 07/28/17 12:59 Hydrocortisone Acetate (Anusol Hc Supp) 25 mg BID PRN [place] 06/28/17 13:00 07/28/17 12:59 Benzocaine (Dermoplast Aero Spr) 1 appln PRN PRN EXT 06/28/17 13:00 07/28/17 12:59 Simethicone (Mylicon Chew Tab) 80 mg QID PO 06/28/17 17:00 07/28/17 16:59 06/28/17 20:24 80 MG Senna (Senokot Tab) 17.2 mg HS PRN PO 06/28/17 13:00 07/28/17 12:59 Fentanyl Citrate (Fentanyl Inj) 50 mcg Q5M PRN IV 06/28/17 18:15 06/29/17 18:14 Hydromorphone HCl (Dilaudid Inj) 0.5 mg Q5M PRN IV 06/28/17 18:15 06/29/17 18:14 Meperidine HCl (Demerol Inj) 25 mg Q5M PRN IV 06/28/17 18:15 06/29/17 18:14 Ondansetron HCl (Zofran Inj) 4 mg ONE PRN IV 06/28/17 18:15 06/29/17 18:14 Labetalol HCl (Normodyne IV) 5 mg Q5M PRN IV 06/28/17 18:15 06/29/17 18:14 Ephedrine Sulfate (EpHEDrine SULFATE INJ) 5 mg Q5M PRN IV 06/28/17 18:15 06/29/17 18:14 Atropine Sulfate (Atropine Sulfate 0.1mg/ml Inj) 0.5 mg Q1M PRN IV 06/28/17 18:15 06/29/17 18:14 Ketorolac Tromethamine (Toradol Inj) 30 mg Q6H PRN IV. 06/29/17 06:00 07/03/17 05:59 Meperidine HCl (Demerol Inj) 50 mg Q4H PRN IV 06/29/17 06:00 07/13/17 05:59 Meperidine HCl (Demerol Inj) 75 mg Q4H PRN IV 06/29/17 06:00 07/13/17 05:59 Ondansetron HCl (Zofran Inj) 4 mg Q4H PRN IV 06/29/17 06:00 07/29/17 05:59 Zolpidem Tartrate (Ambien Tab) 5 mg HSZ PRN PO 06/29/17 06:00 07/29/17 05:59 Diphenhydramine HCl (Benadryl Cap) 25 mg QID PRN PO 06/29/17 06:00 07/29/17 05:59 Diphenhydramine HCl (Benadryl Inj) 25 mg QID PRN IV 06/29/17 06:00 07/29/17 05:59 Review of Systems Constitutional: + fatigue, No fever, No weakness Eyes: No worsening of vision, No diplopia ENT: No hearing loss, No tinnitus, No trouble swallowing Respiratory: No cough, No shortness of breath Cardiovascular: No chest pain, No palpitations Abdomen: + pain, No nausea Musculoskeletal: No joint pain, No muscle pain Genitourinary - Female: No dysuria, No urinary incontinence Neurologic: No memory loss, No weakness, No numbness/tingling, No vertigo, No balance problems Psychiatric: No depression symptoms, No anxiety Endocrine: + fatigue Hematologic / Lymphatic: No abnormal bleeding/bruising Integumentary: No rash Allergic / Immunologic: No hives Physical Exam Vital Signs (Past 24 Hrs): Date Time Temp Pulse Resp B/P (MAP) Pulse Ox O2 Delivery O2 Flow Rate FiO2 06/29/17 05:15 18 97 06/29/17 05:00 36.9 90 20 110/63 (79) 97 Room Air 06/29/17 04:15 18 97 06/29/17 03:15 18 97 06/29/17 02:15 20 98 06/29/17 01:15 20 99 06/29/17 00:15 18 99 06/28/17 23:55 99 Room Air 06/28/17 23:55 36.9 90 20 114/75 (88) 99 Room Air 06/28/17 23:15 20 99 06/28/17 22:15 14 96 06/28/17 21:15 14 95 06/28/17 20:15 36.8 72 16 112/70 (84) 98 Room Air 06/28/17 20:15 16 98 06/28/17 19:15 16 95 06/28/17 18:15 16 97 06/28/17 17:15 16 95 1/20/18 16:15 16 97 06/28/17 16:15 97 Room Air 06/28/17 16:15 36.5 68 16 119/74 (89) 97 Room Air 06/28/17 16:15 97 Room Air Patient is right-handed. The patient is awake and alert. Speech is normal without aphasia or dysarthria. Mentation and thought processes are intact with orientation and normal fund of knowledge. Mood and affect are normal and appropriate. Appearance and grooming are normal. Long and short-term memory are intact. The discs are sharp with positive venous pulsations. There are no exudates, hemorrhages, or blood vessel changes seen. Pupils are 5mm bilaterally and reactive to light. Extraocular eye muscles are intact without nystagmus. Visual acuity and visual gallego seem normal grossly to confrontation. There are no deficits to sensation of the face bilaterally. Corneal reflexes are positive bilaterally. Facial strength and symmetry is normal bilaterally. Hearing seems intact grossly to voice and finger rub. Palate moves well without asymmetry. There is normal sternocleidomastoid and trapezius strength bilaterally. Tongue is midline with good strength bilaterally. Neck is with full range of motion without discomfort. Cervical, thoracic, and lumbar spine are nontender to palpation. Gait is unremarkable. Stance is normal eyes open and she has good turns and balance With outstretched arms there is no drift. There are no resting, postural, or action tremors. There is no ataxia with [id number] testing. There is good facility in the hands. There are no abnormal involuntary movements noted. Motor strength is 5/5 diffusely in the arms bilaterally including deltoids, biceps, brachioradialis, wrist flexors and extensors, plant machinist, and intrinsic hand muscles. Motor strength is 5/5 diffusely in the legs bilaterally including hip flexors, quadriceps, hamstring, gastrocnemius, tibialis anterior, tibialis posterior, and peroneii muscles bilaterally. Toe extensors are normal and there is good bulk in the extensor digitorum brevis muscle bilaterally. The limbs have good tone without rigidity or spasticity, and there is no atrophy noted. Muscle bulk is normal, there is no tenderness, no myotonia noted to percussion, and no fasciculations seen. Sensory examination is intact to pin and touch throughout all four limbs. Reflexes are 2/4 in the biceps, triceps, brachioradialis, quadriceps, and Achilles tendons bilaterally. Toes are downgoing with plantar stimulation bilaterally. Peripheral pulses are present and of normal quality distally in all four limbs. There is no peripheral edema noted. Laboratory Results Past 24 Hours: 06/29/17 05:58 Red Blood Count 3.43, Mean Corpuscular Volume 80.5, Mean Corpuscular Hemoglobin 26.2, Mean Corpuscular Hemoglobin Concent 32.6, Mean Platelet Volume 9.4, Neutrophils (%) (Auto) 71.6, Lymphocytes (%) (Auto) 19.0, Monocytes (%) (Auto) 7.8, Eosinophils (%) (Auto) 1.0, Basophils (%) (Auto) 0.3, Neutrophils # (Auto) 7.50, Lymphocytes # (Auto) 1.99, Monocytes # (Auto) 0.82, Eosinophils # (Auto) 0.11, Basophils # (Auto) 0.03 Test 06/29/17 05:58 White Blood Count 10.48 K/uL (4.8-10.8) Red Blood Count 3.43 M/uL (4.2-5.4) Hemoglobin 9.0 g/dL (12.0-16.0) Hematocrit 27.6 % (37-47) Mean Corpuscular Volume 80.5 fL (80-100) Mean Corpuscular Hemoglobin 26.2 pg (25-34) Mean Corpuscular Hemoglobin Concent 32.6 g/dl (32-36) Platelet Count 228 K/uL (130-400) Mean Platelet Volume 9.4 fL (7.4-10.4) Neutrophils (%) (Auto) 71.6 % Lymphocytes (%) (Auto) 19.0 % Monocytes (%) (Auto) 7.8 % Eosinophils (%) (Auto) 1.0 % Basophils (%) (Auto) 0.3 % Neutrophils # (Auto) 7.50 K/uL (1.4-6.5) Lymphocytes # (Auto) 1.99 K/uL (1.2-3.4) Monocytes # (Auto) 0.82 K/uL (0.11-0.59) Eosinophils # (Auto) 0.11 K/uL (0-0.5) Basophils # (Auto) 0.03 K/uL (0-0.2) RDW Standard Deviation 40.3 fL (36.4-46.3) RDW Coefficient of Variation 13.8 % (11.5-14.5) Immature Granulocyte % (Auto) 0.3 % Immature Granulocyte # (Auto) 0.03 K/uL (0.00-0.02) Impression 1. Epilepsy This patient has a significant history of epilepsy on Lamictal and Keppra with some small dose of Klonopin at bedtime more recently. She has had no seizures since her fall down stairs June 04 She is tolerating Lamictal well and does not seem to have any toxic side effects. Her most recent level on June 23 with quite good at 5.3. 2. Post yesterday, doing well Plan 1. Continue Klonopin 0.5 milligrams each evening until she sees Dr. Sharpe ( 2 weeks). 2. Continue Lamictal 400 milligram ER twice daily 3. Continue levetiracetam 500 milligrams twice daily. 4. Trough Lamictal and levetiracetam levels this coming week (somewhere 3-5 days from now) 5. Follow up with Dr. Sharpe in 2 weeks as an outpatient. I have no further neurologic testing or treatment recommendations to make at this time. Please contact me if I can be of further assistance.
[2017-06-29] MEDS: LAMOTRIGINE 300 MG PO SCH (08:30)
[2017-06-29] MEDS: LEVETIRACETAM 500 MG TAB PO SCH ×2 (08:39→20:24)
[2017-06-29] MEDS: SIMETHICONE 80 MG CHEW PO SCH ×4 (08:40→20:24)
[2017-06-29] MEDS: DOCUSATE SODIUM 100 MG CAP PO SCH ×2 (08:40→20:24)
[2017-06-29] MEDS: PRENATAL VITAMIN TAB PO SCH (08:40)
[2017-06-29] MEDS: IBUPROFEN 600 MG TAB PO PRN ×3 (08:42→21:07)
[2017-06-29] MEDS: LAMOTRIGINE 50 MG PO SCH (10:27)
[2017-06-29] MEDS ORDERED: BISACODYL 5 MG TABEC ONE (20:12)
[2017-06-29] MEDS: LAMICTAL 300 MG PO SCH (20:25)
[2017-06-29] MEDS: LAMICTAL 50 MG PO SCH (20:26)
[2017-06-29] MEDS ORDERED: CLONAZEPAM 0.5 MG TAB PO SCH (21:00)
[2017-06-29] MEDS ORDERED: BISACODYL 5 MG TABEC PO ONE (22:00)
[2017-06-30 00:53] VITALS: BP 106/70; PULSE 85; TEMP 36.6
--- NOTE | 2017-06-30 06:50 | Progress Note ---
Subjective Jun 30, 2017. Subjective conversation w/ patient, physical exam, chart review, lab review Ambulation: ambulating normally Voiding: no voiding problems Passing Gas: Yes Diet Tolerance: Regular Diet Lochia: Moderate Feeding Type: Breast Feeding Pain: CONTROLLED Review of Systems Respiratory: No shortness of breath Cardiac: No palpitations Female : No dysuria Objective Vital Signs Date Time Temp Pulse Resp B/P (MAP) Pulse Ox O2 Delivery O2 Flow Rate FiO2 06/30/17 00:55 Room Air 06/30/17 00:53 36.6 85 18 106/70 (82) Room Air 06/29/17 17:00 98 Room Air 06/29/17 17:00 36.7 80 16 109/69 (82) 98 Room Air 06/29/17 12:30 36.9 85 20 100/63 (75) 06/29/17 08:15 37.0 85 20 110/69 (83) Physical Exam General Appearance: WELL-APPEARING, WD/WN, NO APPARENT DISTRESS Respiratory/Chest: lungs clear, normal breath sounds, no respiratory distress Cardiovascular: regular rate, rhythm, no gallop Abdomen: soft Fundus: Firm, Non-Tender, Relation to Umbilicus (1 below u) Incision Description: Clean, Dry & Intact Extremities: non-tender Laboratory Results Last 24 Hours Test 06/30/17 04:44 06/30/17 06:00 Assessment and Plan Post-Op Day#: 2 Continue Routine Care: 26 yof s/p repeat C/S 06/28 1200 AB+/GBS-/RI Vitals reviewed and wnl Hgb stable Pt doing clinically well, seen by Neuro see note, continue routine care, encourage ambulation, pain control, monitor lochia, support. BRYN RAPHAEL FMR PGY 1 Resident Physician Supervision Note: I was present with Dr. Raphael during the history and exam. I discussed the case with the resident and agree with the findings and plan as documented in the note. Any exceptions or clarifications are listed here: [None] Documented By: Wood Lam Resident Tracking Resident Involvement: Resident Care Provided Care Provided: OB Delivery
[2017-06-30 07:42] VITALS: BP 109/70; PULSE 81; TEMP 36.9; O2SAT 98
--- NOTE | 2017-06-30 07:51 | OPERATIVE REPORT ---
DATE OF OPERATION: 06/28/2017 PREOPERATIVE DIAGNOSES: at 38 weeks, prior section in labor. The patient desires permanent sterilization. POSTOPERATIVE DIAGNOSES: Same. PROCEDURE: Low segment transverse section, bilateral tubal ligation. SURGEON: Dr. Paul Lam. ESTIMATED BLOOD LOSS: 600 mL [employer] PROFESSOR: Alondra Neff RN FINDINGS: Consistent with postop diagnoses. SPECIMENS: Placenta, cord blood, portions of left and right fallopian tubes, cord gases. DRAINS: Dang catheter. ANESTHETIC: Spinal. COMPLICATIONS: None. DISPOSITION: Labor and delivery. DESCRIPTION OF PROCEDURE: Fátima was given a spinal anesthetic. Dang catheter placed in her bladder. She was positioned in supine position with a leftward tilt. Pickups with teeth were used to test her adequacy of block and it was found to be adequate. Ancef was given preoperatively. Skin incision was made with knife Pfannenstiel prior incision dissecting down through the subcutaneous fat to the fascia in the midline. Fascia dissected laterally with curved Almaguer scissors and then superiorly and inferiorly with the Almaguer scissors. Rectus muscle split, peritoneal cavity entered in a superior location and then peritoneal cavity opening enlarged to allow exposure. Bladder retractor placed. Metzenbaums used to dissect away the bladder flap and an incision in the uterus was made in a low segment transverse fashion. Entry into the uterus was done bluntly and opening enlarged bluntly. Membranes were ruptured, fluid was clear. Baby delivered by flexion of the head and then pressure on the abdomen. No excessive force used. Live vigorous infant. Cord clamped and cut after the baby's head and body delivered. There was a loose nuchal cord. Cord gases obtained. Cord blood obtained. Placenta removed. IV Pitocin started. Uterus exteriorized. We ensured all placenta was removed. Uterus closed in the usual fashion with running 0 Monocryl locked layer and a second reinforcing nonlocked 0 Monocryl layer. At this stage, hemostasis was excellent. We performed a tubal ligation first on the right fallopian tube, grasping this with a Borck, ligating it 2 times with 0 chromic and then cutting a small section of tube with Metzenbaums. Same process on the left side. We ensured hemostasis ____. Uterus was placed back in the peritoneal cavity prior to suction irrigation of the cul-de-sac and then irrigation of the anterior bladder flap region and inspection. The incision was hemostatic as well as the tubal ligation areas were hemostatic. Retractors removed. Fascia closed with 0 Vicryl, subcutaneous fat irrigated and closed with 3-0 Vicryl, skin closed with 4-0 subcuticular Monocryl and Steri-Strips. Urine was clear at the end of this procedure. Sponge and instrument counts correct. I attest to the content of the Intraoperative Record and any orders documented therein. Any exception s are noted below.
[2017-06-30 07:53] LABS: HEMATOCRIT 30.6 % (37-47); HEMOGLOBIN 9.9 g/dL (12.0-16.0)
[2017-06-30] MEDS: LAMICTAL 300 MG PO SCH ×2 (08:00→19:41)
[2017-06-30] MEDS: LAMICTAL 50 MG PO SCH ×2 (08:00→19:41)
[2017-06-30] MEDS: DOCUSATE SODIUM 100 MG CAP PO SCH ×2 (08:36→19:38)
[2017-06-30] MEDS: SIMETHICONE 80 MG CHEW PO SCH ×4 (08:36→19:38)
[2017-06-30] MEDS: PRENATAL VITAMIN TAB PO SCH (08:36)
[2017-06-30] MEDS: LEVETIRACETAM 500 MG TAB PO SCH ×2 (08:36→19:38)
[2017-06-30] MEDS: IBUPROFEN 600 MG TAB PO PRN ×2 (08:38→12:33)
--- NOTE | 2017-06-30 10:36 | Neurology Progress Notes ---
Neurology Progress Note Date of Service Jun 30, 2017. Subjective Patient denies any symptoms concerning for seizure seizure aura since last being seen in neurology clinic. She was having trouble the last week of sleeping only getting about 2 hours of sleep per night but in hindsight this is likely due to contractions. Patient denies any symptoms concerning for seizures since hospitalization. Denies any symptoms concerning for medication side effects or toxicity. No new neurological symptoms. No abnormal headaches. Objective Date Time Temp Pulse Resp B/P (MAP) Pulse Ox O2 Delivery O2 Flow Rate FiO2 06/30/17 07:42 36.9 81 20 109/70 (83) 98 Room Air 06/30/17 07:42 98 Room Air 06/30/17 00:55 Room Air 06/30/17 00:53 36.6 85 18 106/70 (82) Room Air 06/29/17 17:00 98 Room Air 06/29/17 17:00 36.7 80 16 109/69 (82) 98 Room Air 06/29/17 12:30 36.9 85 20 100/63 (75) Last 24 Hours Test 06/30/17 07:26 Hemoglobin 9.9 g/dL Hematocrit 30.6 % Exam: Gen.: Patient is alert and sitting in bed, in no acute distress. HEENT: Normocephalic /atraumatic, no scleral icterus Extremities: No gross deformities or rashes noted Neurological examination: Mental status: Patient is alert and oriented x3. Attention and concentration normal for the situation. Good fund of knowledge. Remote and recent memory intact. Speech is fluent without any dysarthria or aphasia noted Cranial nerve: Extraocular muscles intact without nystagmus. No facial asymmetry noted. Facial sensation intact. Hearing grossly intact to voice. Strength: Full strength in all extremities. There is no arm drift. Sensation: Romberg's negative Coordination: Patient had good finger to nose without dysmetria Gait was within normal limits. Tandem gait intact. Current Inpatient Medications Medications (Trade) Dose Ordered Sig/Angela Route Start Time Stop Time Status Last Admin Dose Admin Lactated Ringer's 1,000 ml @ 125 mls/hr Q8H IV 06/28/17 06:53 07/28/17 06:52 06/28/17 08:48 125 MLS/HR Levetiracetam (Keppra Tab) 500 mg BID PO 06/28/17 08:00 07/28/17 07:59 06/30/17 08:36 500 MG Oxytocin 20 units/ Lactated Ringer's 1,002 ml @ 125 mls/hr Q8H1M IV 06/28/17 12:49 07/28/17 12:48 06/28/17 14:07 125 MLS/HR Lactated Ringer's 1,000 ml @ 125 mls/hr Q8H IV 06/28/17 12:49 07/28/17 12:48 06/28/17 22:19 125 MLS/HR Ibuprofen (Motrin Tab) 600 mg Q4H PRN PO 06/28/17 13:00 07/28/17 12:59 06/30/17 08:38 600 MG Prenat Multivit/ [place]/Iron/Folic Ac ( Vitamin Tab) 1 tab DAILY PO 06/29/17 08:00 07/29/17 07:59 06/30/17 08:36 1 TAB Bisacodyl (Dulcolax Supp) 10 mg PRN PRN [place] 06/30/17 22:45 07/30/17 22:44 Docusate Sodium (coLACE CAP) 100 mg BID PO 06/28/17 20:00 07/28/17 19:59 06/30/17 08:36 100 MG Magnesium Hydroxide (Milk Of Magnesia Susp) 30 ml HS PRN PO 06/28/17 13:00 07/28/17 12:59 Cocaine HCl (Supercream 0.870% Cr) BID PRN EXT 06/28/17 13:00 07/12/17 12:59 Lanolin (Lanolin Oint) PRN PRN EXT 06/28/17 13:00 07/28/17 12:59 Hydrocortisone Acetate (Anusol Hc Supp) 25 mg BID PRN [place] 06/28/17 13:00 07/28/17 12:59 Benzocaine (Dermoplast Aero Spr) 1 appln PRN PRN EXT 06/28/17 13:00 07/28/17 12:59 Simethicone (Mylicon Chew Tab) 80 mg QID PO 06/28/17 17:00 07/28/17 16:59 06/30/17 08:36 80 MG Senna (Senokot Tab) 17.2 mg HS PRN PO 06/28/17 13:00 07/28/17 12:59 Ketorolac Tromethamine (Toradol Inj) 30 mg Q6H PRN IV. 06/29/17 06:00 07/03/17 05:59 Meperidine HCl (Demerol Inj) 50 mg Q4H PRN IV 06/29/17 06:00 07/13/17 05:59 Meperidine HCl (Demerol Inj) 75 mg Q4H PRN IV 06/29/17 06:00 07/13/17 05:59 Ondansetron HCl (Zofran Inj) 4 mg Q4H PRN IV 06/29/17 06:00 07/29/17 05:59 Zolpidem Tartrate (Ambien Tab) 5 mg HSZ PRN PO 06/29/17 06:00 07/29/17 05:59 Diphenhydramine HCl (Benadryl Cap) 25 mg QID PRN PO 06/29/17 06:00 07/29/17 05:59 Diphenhydramine HCl (Benadryl Inj) 25 mg QID PRN IV 06/29/17 06:00 07/29/17 05:59 Non-Formulary Medication (Non-Formulary Patient'S Own Med) 2 ea BID PO 06/29/17 20:00 07/29/17 19:59 06/30/17 08:00 2 EA Non-Formulary Medication (Non-Formulary Patient'S Own Med) 1 ea BID PO 06/29/17 20:00 07/29/17 19:59 06/30/17 08:00 1 EA Clonazepam (Klonopin Tab) 0.5 mg QPM PO 06/29/17 21:00 07/29/17 20:59 06/29/17 21:07 0.5 MG Impression This is a 26-year-old female with recent delivery on the . The patient has had difficult to control epilepsy during . No recent seizures. No reported medication side effects at this time. Plan Discussed that at some point after delivery Lamictal levels are likely to rise due to changing 4 months. Difficult to say whether this will happen within days or within weeks. I have ordered a Lamictal level this morning to monitor for drug toxicity. Agree with obtaining a another Lamictal level in 1 week for trending and medication management purposes. Instructed her to follow-up in 2-3 weeks with myself in clinic If she has any signs or symptoms of Lamictal toxicity in the meantime such as dizziness, blurred vision, discoordination, should give me a call as she may experience signs of Lamictal toxicity before we have a level come back showing toxicity. If she shows signs of toxicity, can empirically lower her level by 50 mg per week based off of her symptoms. Continue Lamictal and Keppra without change for now. The patient was only on Klonopin for short period of time to prevent seizures around delivery time. At this point I feel that it is probably reasonable to discontinue Klonopin. If there is any questions or concerns, feel free to call/page me.
[2017-06-30 15:35] VITALS: BP 116/70; PULSE 67; TEMP 36.9; O2SAT 99
--- NOTE | 2017-06-30 16:09 | Discharge Instructions ---
Discharge Instructions Date of Service Jun 30, 2017. Admission Reason for Admission: Check Labor Discharge Discharge Diagnosis / Problem: Repeat Cesaerean Section Discharge Goals Goal(s): Routine recovery after Medications Continue Dispensed Medications: lansinoh Activity Recommendations Activity Limitations: per Instructions/Follow-up section . Instructions / Follow-Up Instructions / Follow-Up Follow up as directed with your neurologist: Continue your seizure medications as prescribed: Klonopin 0.5 milligrams each evening until your appointment with Dr. Sharpe (2 weeks). Continue Lamictal 400 milligram ER twice daily. Continue levetiracetam 500 milligrams twice daily. Follow up with Dr. Sharpe in 2 weeks in the clinic. ACTIVITY RECOMMENDATIONS: * Gradual return to full activity over the next 2-3 weeks. * No lifting - nothing heavier than baby over the next 2-3 weeks. * Do not engage in vigorous exercise, sexual activity or sports until cleared by your physician. * Do not drive or operate any motorized equipment until cleared by your physician. * You may shower/bathe daily. MEDICATIONS: For discomfort or pain, you may use Acetaminophen (Tylenol), Ibuprofen (Advil), or Naproxen (Aleve) following the package directions. For constipation you may use Colace following the package directions. BREAST CARE: If you are not breast feeding: * Wear a supportive bra 24 hours a day for one to two weeks. * Avoid stimulating your breasts and nipples as much as possible during the first few weeks after delivery. * When taking a shower, have the warm water hit your back, not breasts. * When your breasts feel full, apply ice packs. Usually three to four times a day helps ease the discomfort. * Take a mild pain medication (Tylenol / Motrin) when you are uncomfortable. If breast feeding: * Use breast milk to lubricate nipples. Lansinoh cream may be used for sore nipples. You do not need to remove cream prior to breast feeding. If using a different brand of cream, check the label for directions regarding removal of cream prior to nursing. * Wear a supportive bra. * If having problems with breasts or breast feeding, call a information technology consultant or your health care provider. SPECIAL CARE INSTRUCTIONS: When you are discharged from the hospital, it is important for you to follow the instructions listed below: * During the first week at home, you should be able to care for yourself and your baby. In addition, the usual light household activities are encouraged. * Limit your activities to the way you feel. Do not try to clean the house or move furniture. Be sensible. * If you actively engage in sports and have done so up until the time of your delivery, you may resume these activities as soon as you feel able. This may take up to one month or even longer. Use good judgment. * Continue to take your vitamins for at least six weeks after the of your baby. * Your diet need not be limited unless you were on a special diet before your delivery. Breast-feeding mothers need around 2500 calories per day and at least 64-80 ounces of fluid per day (8 to 10 glasses). * You should eat foods from the four major food groups. Crash diets or fad diets are to be avoided. Eating lean meats, fresh fruits and vegetables, low-fat dairy products, high fiber foods and a regular exercise program, will help you get back to your pre- weight without putting your health at risk. * Constipation is sometimes a problem after delivery. Take a mild laxative as needed. If breast feeding, Milk of Magnesia is acceptable to use. You may use a suppository or Fleets enema. * A daily shower or tub bath is suggested. Wash incision daily with warm soapy water and pat dry. It doesn't need to be covered unless drainage is present. * A bloody vaginal discharge will usually continue until around four weeks . A small amount of bleeding may continue for as long as six weeks. Vaginal discharge changes from the bright red bleeding after delivery to pink then brownish and finally yellowish-pink before becoming white and disappearing. * Bleeding may increase with activity. Your first period may come in 4-8 weeks. If you are breast feeding, your period may be delayed even longer. * [place] (sex) can begin whenever both you and your partner feel comfortable and do not have any form of genital infection. It is recommended that you wait at least six weeks for internal and external healing to occur. If you have questions, please talk to your health care practitioner. A condom should be used to prevent infection and . * Foreplay, gentle intercourse and lubrication is very important the first several times to prevent pain. A water-based lubricant such as K-Y jelly or Astroglide may be used. * If you have RH negative blood and your baby is RH positive, you will receive RHOGAM by injection prior to discharge. The nurse will give you a card to keep with you that has the date and place that you received RHOGAM after delivery. * During your care, you had a Rubella screen done to check for the presence of rubella antibodies in your blood. If your test was negative, you will receive a Rubella vaccine prior to discharge. This vaccine may cause a fever, soreness at the injection site and flu-like symptoms. If these symptoms persist, notify your health care practitioner. is not advised for one month after a Rubella vaccine. * Verbalizes understanding of car seat law as reviewed with patient nursing. * Car Seat hand-out given and reviewed with patient by nursing. * Shaken baby information reviewed with patient by nursing. Call you doctor if: * Heavy bleeding (saturating several pads an hour) or passing clots the size of your fist. * A fever >101 degrees F (38.3 degrees C) on two occasions four hours apart and /or chills. * Unusual pain in the pelvic or vaginal areas. * Call the doctor for any increased redness, drainage or swelling around the incision and any pain unrelieved by prescribed pain medication. * "Baby Blues" lasting longer than two weeks. If you have any questions or concerns, call your health care practitioner at . FOLLOW UP VISIT: * Please call the office at to schedule a 6 week examination. It is important you keep this appointment. It is important for you to make arrangements for either yearly or twice yearly check-ups thereafter. Current Hospital Diet Patient's current hospital diet: Regular OB Diet Discharge Diet Recommended Diet: Regular Diet Procedures Procedures Performed: Live Female at 1214 Pending Studies Studies pending at discharge: no Medical Emergencies . Who to Call and When: Medical Emergencies: If at any time you feel your situation is an emergency, please call 911 immediately. . Non-Emergent Contact Non-Emergency issues call your: Primary Care Provider . . "Provider Documentation" section prepared by Zuleika Raphael. . VTE Core Measure Inpt VTE Proph given/why not?: SCD's
[2017-06-30] MEDS ORDERED: BISACODYL 10 MG SUPP PR PRN (22:45)
[2017-07-01 00:02] VITALS: BP 114/77; TEMP 36.7
[2017-07-01] MEDS: IBUPROFEN 600 MG TAB PO PRN ×2 (01:26→07:58)
--- NOTE | 2017-07-01 06:51 | Progress Note ---
Subjective Jul 01, 2017. Subjective conversation w/ patient, physical exam, chart review, lab review Ambulation: ambulating normally Voiding: no voiding problems Passing Gas: Yes Diet Tolerance: Regular Diet Lochia: Moderate Feeding Type: Breast Feeding Pain: controlled Review of Systems Respiratory: No shortness of breath Cardiac: No palpitations Objective Vital Signs Date Time Temp Pulse Resp B/P (MAP) Pulse Ox O2 Delivery O2 Flow Rate FiO2 07/01/17 00:04 Room Air 07/01/17 00:02 36.7 18 114/77 (89) Room Air 06/30/17 15:35 36.9 67 18 116/70 (85) 99 Room Air 06/30/17 15:35 Room Air 06/30/17 07:42 36.9 81 20 109/70 (83) 98 Room Air 06/30/17 07:42 98 Room Air Physical Exam General Appearance: WELL-APPEARING, WD/WN, NO APPARENT DISTRESS Respiratory/Chest: lungs clear, normal breath sounds, no respiratory distress Cardiovascular: regular rate, rhythm, no gallop Abdomen: soft Fundus: Firm, Non-Tender, Relation to Umbilicus (1 below U) Incision Description: Clean, Dry & Intact Extremities: no calf tenderness Laboratory Results Last 24 Hours Test 06/30/17 07:26 Hemoglobin 9.9 g/dL Hematocrit 30.6 % Assessment and Plan Problem List Medical Problems: (1) 35 weeks gestation of Status: Acute (2) Acute gastroenteritis Status: Acute (3) Anemia Status: Acute (4) Breakthrough seizure Status: Acute (5) Dehydration Status: Acute (6) Dehydration Status: Acute (7) Diarrhea Status: Acute (8) Head contusion Status: Acute (9) Hypokalemia Status: Acute (10) Multiple trauma Status: Acute (11) Status: Acute (12) Status: Acute (13) Rib contusion Status: Acute (14) Right shoulder pain Status: Acute (15) Seizure Status: Acute (16) Seizure disorder Status: Acute (17) Seizure disorder Status: Acute (18) Seizure disorder Status: Acute (19) Shoulder pain, right Status: Acute (20) Third trimester Status: Acute (21) UTI (urinary tract infection) Status: Acute (22) Vertigo Status: Acute Post-Op Day#: 3 Continue Routine Care: 26 yof s/p repeat C/S 1/20 1200 AB+/GBS-/RI Vitals reviewed and wnl Hgb stable Pt doing clinically well, seen by Neuro see note, continue routine care, encourage ambulation, pain control, monitor lochia, support. Anticipate DC today, counselled on dc instructions. BRYN RAPHAEL FMR PGY 1 Resident Physician Supervision Note: I was present with Dr. Raphael during the history and exam. I discussed the case with the resident and agree with the findings and plan as documented in the note. Any exceptions or clarifications are listed here: POD#3 doing well. Discharge to home. Per neuro, continue keppra and lamictal, f/u in office in 2- 3w - recheck lamictal level 1 week (this lab takes approx 1 week to result, per pt). Followup OBGYN office 6w. PAPDMP checked. Documented By: Gina Jarquin Resident Tracking Resident Involvement: Resident Care Provided Care Provided: OB Delivery
[2017-07-01] MEDS ORDERED: OXYC-57 PO (06:54)
[2017-07-01 07:45] VITALS: BP 114/70; PULSE 85; TEMP 36.8
[2017-07-01] MEDS: DOCUSATE SODIUM 100 MG CAP PO SCH (07:57)
[2017-07-01] MEDS: PRENATAL VITAMIN TAB PO SCH (07:57)
[2017-07-01] MEDS: SIMETHICONE 80 MG CHEW PO SCH (07:57)
[2017-07-01] MEDS: LEVETIRACETAM 500 MG TAB PO SCH (07:58)
[2017-07-01] MEDS: LAMICTAL 50 MG PO SCH (08:00)
[2017-07-01] MEDS: LAMICTAL 300 MG PO SCH (08:00)
[2017-07-01 10:45] VITALS: BP_DIAS 70; PULSE 85; TEMP 36.8
== END 2017-07-01 11:20 | disposition home or self-care (01) | DRG 765 ==
LOC: C.OPB 06:24 → C.LD 06:24 → C.OPB 10:43 → C.OBG 16:44
PROVIDERS: ADMIT Obstetrics & Gynecology; ATTEND Obstetrics & Gynecology
PROC: 10D00Z1 Extraction of Products of Conception, Low, Open Approach (ICD-10-PCS; principal; 2017-06-28 11:16)
DX: O34.219 Maternal care for unspecified type scar from previous cesarean delivery (principal); O99.354 Diseases of the nervous system complicating childbirth; Z37.0 Single live birth; G40.909 Epilepsy, unspecified, not intractable, without status epilepticus; N85.8 Other specified noninflammatory disorders of uterus; O69.81X0 Labor and delivery complicated by cord around neck, without compression, not applicable or unspecified; Z3A.38 38 weeks gestation of pregnancy; Z79.899 Other long term (current) drug therapy

== ENCOUNTER → 2017-07-23 | Outpatient (CLI) | payer OTHER ==
[~2017-07-23] MED LIST changes: -CEFAZOLIN IV 2,000 MG in SYRINGE 0 ML IV SCH; -ONDA4TAB10 SL
== END | disposition home or self-care (01) ==
LOC: C.LAB1850 09:04
PROVIDERS: ATTEND Psychiatry & Neurology Neurology
DX: Z51.81 Encounter for therapeutic drug level monitoring (principal)

== ENCOUNTER → 2017-10-15 | Outpatient (CLI) | payer OTHER | END | disposition home or self-care (01) | LOC: C.LAB1850 16:42 | PROVIDERS: ATTEND Psychiatry & Neurology Neurology | DX: Z51.81 Encounter for therapeutic drug level monitoring (principal) ==